=== PATIENT | female | born 1955 | race Caucasian/White ===

== ENCOUNTER 2025-01-07 08:45 | Inpatient (IN) ==
--- OUTSIDE RECORDS SUMMARY | 2025-01-07 15:11 | External Medical Summary ---
Author Name Unknown Address Unknown Organization K1F:[facility] - [address] [place] [address] Laboratory Report Ordering Provider Test Date Status JODIE MIRANDA 01/05/2025 05:38:00 Final Observation Date Value Abnormality Reference (Units ) Status BUN 01/05/2025 05:38:00 10 6-20 (mg/dL) Final Creatinine 01/05/2025 05:38:00 0.6 0.5-1.0 (mg/dL) Final Glomerular filtration rate/1.73 sq M.predicted [Volume Rate/Area] in Serum, Plasma or Blood by Creatinine-based formula (CKD-EPI) 01/05/2025 05:38:00 >90 >=60 (mL/min) Final eGFR is calculated based on the CKD-EPI 2020 equation. Sodium 01/05/2025 05:38:00 139 135-146 (m mol/L) Final Potassium 01/05/2025 05:38:00 4.7 3.5-5.1 (m mol/L) Final Results may be falsely eleva caden due to hemolysis. Cl 01/05/2025 05:38:00 103 98-107 (mm ol/L) Final CO2 01/05/2025 05:38:00 27 22-32 (mmo l/L) Final Anion gap 01/05/2025 05:38:00 9 7-15 (mmol /L) Final Glucose 01/05/2025 05:38:00 97 70-120 (mg /dL) Final Calcium 01/05/2025 05:38:00 9.2 8.4-10.2 ( mg/dL) Final Performing Location [facility] - [address] [place] [address]
--- OUTSIDE RECORDS SUMMARY | 2025-01-07 15:11 | External Medical Summary ---
Author Name Unknown Address Unknown Organization K1F:LAB[facility]AT[facility] - [address] [place] [address] Laboratory Report Ordering Provider Test Date Status JODIE MIRANDA 01/07/2025 05:40:00 Final Observation Date Value Abnormality Reference (Units ) Status WBC, Total 01/07/2025 05:40:00 8.12 4.00-10.80 (K/uL) Final RBC 01/07/2025 05:40:00 3.89 3.85-5.15 (M/uL) Final Hemoglobin 01/07/2025 05:40:00 11.4 Below low normal 12.0-15.3 (g/dL) Final HCT 01/07/2025 05:40:00 36.8 36.0-45.2 (%) Final MCV 01/07/2025 05:40:00 94.6 81.5-97.5 (fL) Final MCH 01/07/2025 05:40:00 29.3 27.0-34.0 (pg) Final MCHC 01/07/2025 05:40:00 31.0 32.0-36.0 (g/dL) Final RDW 01/07/2025 05:40:00 14.4 11.5-15.5 (%) Final Platelets 01/07/2025 05:40:00 316 140-400 (K/uL) Final MPV 01/07/2025 05:40:00 9.0 6.6-11.1 (fL) Final Nucleated erythrocytes/100 leukocytes [Ratio] in Blood by Automated count 01/07/2025 05:40:00 0 <=0 (/100 WBCs) Final Performing Location [facility] - [address] [place] [address]
--- OUTSIDE RECORDS SUMMARY | 2025-01-07 15:11 | External Medical Summary ---
Author Name Unknown Address Unknown Organization K01:[facility] [place] [facility] [place] [address] [place] [address] Laboratory Report Ordering Provider Test Date Status CARLOS AHARSHAL FIELDS 01/05/2025 18:13:57 Final Observation Date Value Abnormality Reference (Units) Status Bacteria identified in Specimen by Culture 01/05/2025 18:13:57 No significant growth Final Test: Culture, Urine, Quant itative
Specimen Source: Urine, Clean Catch
Specimen Type: Urine
Specimen Date: 01/05/20251812
Result Date: 01/07/2025 0845
Result Status: Final result
Resulting Lab: [facility] [place] [facility] [place]
[address]
[facility] [address]

CULTURE

No significant growth

null Performing Location [facility] [place] [facility] [place] - [address] [facility] [address]
--- OUTSIDE RECORDS SUMMARY | 2025-01-07 15:11 | External Medical Summary ---
Author Name Unknown Address Unknown Organization K1F:LABORATORY [facility] - [address] [place] [address] Laboratory Report Ordering Provider Test Date Status JODIE MIRANDA 01/06/2025 05:48:00 Final Observation Date Value Abnormality Reference (Units ) Status WBC, Total 01/06/2025 05:48:00 8.01 4.00-10.80 (K/uL) Final RBC 01/06/2025 05:48:00 3.79 3.85-5.15 (M/uL) Final Hemoglobin 01/06/2025 05:48:00 11.1 Below low normal 12.0-15.3 (g/dL) Final HCT 01/06/2025 05:48:00 36.7 36.0-45.2 (%) Final MCV 01/06/2025 05:48:00 96.8 81.5-97.5 (fL) Final MCH 01/06/2025 05:48:00 29.3 27.0-34.0 (pg) Final MCHC 01/06/2025 05:48:00 30.2 32.0-36.0 (g/dL) Final RDW 01/06/2025 05:48:00 14.5 11.5-15.5 (%) Final Platelets 01/06/2025 05:48:00 312 140-400 (K/uL) Final MPV 01/06/2025 05:48:00 9.0 6.6-11.1 (fL) Final Nucleated erythrocytes/100 leukocytes [Ratio] in Blood by Automated count 01/06/2025 05:48:00 0 <=0 (/100 WBCs) Final Performing Location [facility] - [address] [place] [address]
--- OUTSIDE RECORDS SUMMARY | 2025-01-07 15:11 | External Medical Summary ---
Author Name Unknown Address Unknown Organization K1F:[facility] - [address] [place] [address] Laboratory Report Ordering Provider Test Date Status JODIE MIRANDA 01/06/2025 05:48:00 Final Observation Date Value Abnormality Reference (Units ) Status BUN 01/06/2025 05:48:00 12 6-20 (mg/dL) Final Creatinine 01/06/2025 05:48:00 0.6 0.5-1.0 (mg/dL) Final Glomerular filtration rate/1.73 sq M.predicted [Volume Rate/Area] in Serum, Plasma or Blood by Creatinine-based formula (CKD-EPI) 01/06/2025 05:48:00 >90 >=60 (mL/min) Final eGFR is calculated based on the CKD-EPI 2020 equation. Sodium 01/06/2025 05:48:00 138 135-146 (m mol/L) Final Potassium 01/06/2025 05:48:00 5.0 3.5-5.1 (m mol/L) Final Results may be falsely eleva caden due to hemolysis. Cl 01/06/2025 05:48:00 102 98-107 (mm ol/L) Final CO2 01/06/2025 05:48:00 26 22-32 (mmo l/L) Final Anion gap 01/06/2025 05:48:00 10 7-15 (mmol /L) Final Glucose 01/06/2025 05:48:00 110 70-120 (mg /dL) Final Calcium 01/06/2025 05:48:00 9.0 8.4-10.2 ( mg/dL) Final Performing Location [facility] - [address] [place] [address]
--- OUTSIDE RECORDS SUMMARY | 2025-01-07 15:11 | External Medical Summary ---
Author Name Unknown Address Unknown Organization K1F:LAB[facility]ATORY [facility] - [address] [place] [address] Laboratory Report Ordering Provider Test Date Status JODIE MIRANDA 01/05/2025 05:38:00 Final Observation Date Value Abnormality Reference (Units ) Status WBC, Total 01/05/2025 05:38:00 7.55 4.00-10.80 (K/uL) Final RBC 01/05/2025 05:38:00 3.85 3.85-5.15 (M/uL) Final Hemoglobin 01/05/2025 05:38:00 11.3 Below low normal 12.0-15.3 (g/dL) Final HCT 01/05/2025 05:38:00 36.5 36.0-45.2 (%) Final MCV 01/05/2025 05:38:00 94.8 81.5-97.5 (fL) Final MCH 01/05/2025 05:38:00 29.4 27.0-34.0 (pg) Final MCHC 01/05/2025 05:38:00 31.0 32.0-36.0 (g/dL) Final RDW 01/05/2025 05:38:00 14.2 11.5-15.5 (%) Final Platelets 01/05/2025 05:38:00 315 140-400 (K/uL) Final MPV 01/05/2025 05:38:00 8.9 6.6-11.1 (fL) Final Nucleated erythrocytes/100 leukocytes [Ratio] in Blood by Automated count 01/05/2025 05:38:00 0 <=0 (/100 WBCs) Final Performing Location [facility] - [address] [place] [address]
--- OUTSIDE RECORDS SUMMARY | 2025-01-07 15:11 | External Medical Summary ---
Author Name Unknown Address Unknown Organization K1F:[facility] - [address] [facility] [address] [place] [address] Laboratory Report Ordering Provider Test Date Status HARSHAL STRAUSS 01/05/2025 18:13:57 Final Observation Date Value Abnormality Reference (Units ) Status Color of Urine by Auto 01/05/2025 18:13:57 Yellow Light Yellow, Yellow, Dark Yellow Final Clarity, Urine 01/05/2025 18:13:57 Clear Clear Final Glucose [Mass/volume] in Urine by Automated test strip 01/05/2025 18:13:57 Negative Negative (mg/dL) Final Bilirubin.total [Presence] in Urine by Automated test strip 01/05/2025 18:13:57 Negative Negative Final Ketones [Mass/volume] in Urine by Automated test strip 01/05/2025 18:13:57 Negative Negative (mg/dL) Final Specific gravity, Urine 01/05/2025 18:13:57 1.014 1.003-1.030 Final Hemoglobin [Presence] in Urine by Automated test strip 01/05/2025 18:13:57 Negative Negative Final pH, Urine 01/05/2025 18:13:57 6.0 5.0-7.5 (Units) Final Protein [Mass/volume] in Urine by Automated test strip 01/05/2025 18:13:57 Negative Negative (mg/dL) Final Urobilinogen [Mass/volume] in Urine by Automated test strip 01/05/2025 18:13:57 0.2 0.2, 1.0 (mg/dL) Final Nitrite [Presence] in Urine by Automated test strip 01/05/2025 18:13:57 Negative Negative Final Leukocyte esterase [Presence] in Urine by Automated test strip 01/05/2025 18:13:57 Trace Abnormal Negative Final RBC, Urine 01/05/2025 18:13:57 0-2 0-2 (/HPF) Final WBC, Urine 01/05/2025 18:13:57 0-2 0-2 (/HPF) Final Bacteria [#/area] in Urine sediment by Microscopy high power field 01/05/2025 18:13:57 51-100 Abnormal 0-25 (/HPF) Final CULTURE, URINE - [facility] 01/05/2025 18:13:57 Final Quantitative urine culture t o be performed Performing Location [facility] - [facility] [place] [address]
--- OUTSIDE RECORDS SUMMARY | 2025-01-07 15:11 | External Medical Summary ---
Author Name Unknown Address Unknown Organization K1F:[facility] - [address] [place] [address] Laboratory Report Ordering Provider Test Date Status JODIE MIRANDA 01/07/2025 05:40:00 Final Observation Date Value Abnormality Reference (Units ) Status BUN 01/07/2025 05:40:00 9 6-20 (mg/dL) Final Creatinine 01/07/2025 05:40:00 0.7 0.5-1.0 (mg/dL) Final Glomerular filtration rate/1.73 sq M.predicted [Volume Rate/Area] in Serum, Plasma or Blood by Creatinine-based formula (CKD-EPI) 01/07/2025 05:40:00 >90 >=60 (mL/min) Final eGFR is calculated based on the CKD-EPI 2020 equation. Sodium 01/07/2025 05:40:00 140 135-146 (m mol/L) Final Potassium 01/07/2025 05:40:00 4.3 3.5-5.1 (m mol/L) Final Cl 01/07/2025 05:40:00 102 98-107 (mm ol/L) Final CO2 01/07/2025 05:40:00 27 22-32 (mmo l/L) Final Anion gap 01/07/2025 05:40:00 11 7-15 (mmol /L) Final Glucose 01/07/2025 05:40:00 97 70-120 (mg /dL) Final Calcium 01/07/2025 05:40:00 9.4 8.4-10.2 ( mg/dL) Final Performing Location [facility] - [address] [place] [address]
--- OUTSIDE RECORDS SUMMARY | 2025-01-07 15:12 | External Medical Summary ---
Author Name Unknown Address Unknown Organization K1F:[facility] - [address] [place] [address] Laboratory Report Ordering Provider Test Date Status HARSHAL STRAUSS 01/02/2025 12:54:00 Final Observation Date Value Abnormality Reference (Units ) Status BUN 01/02/2025 12:54:00 10 6-20 (mg/dL) Final Creatinine 01/02/2025 12:54:00 0.6 0.5-1.0 (mg/dL) Final Glomerular filtration rate/1.73 sq M.predicted [Volume Rate/Area] in Serum, Plasma or Blood by Creatinine-based formula (CKD-EPI) 01/02/2025 12:54:00 >90 >=60 (mL/min) Final eGFR is calculated based on the CKD-EPI 2020 equation. Sodium 01/02/2025 12:54:00 137 135-146 (m mol/L) Final Potassium 01/02/2025 12:54:00 3.1 Below low normal 3.5 -5.1 (mmol/L) Final Cl 01/02/2025 12:54:00 99 98-107 (mm ol/L) Final CO2 01/02/2025 12:54:00 23 22-32 (mmo l/L) Final Anion gap 01/02/2025 12:54:00 15 7-15 (mmol /L) Final Glucose 01/02/2025 12:54:00 104 70-120 (mg /dL) Final Calcium 01/02/2025 12:54:00 9.0 8.4-10.2 ( mg/dL) Final Performing Location [facility] - [address] [place] [address]
--- OUTSIDE RECORDS SUMMARY | 2025-01-07 15:12 | External Medical Summary ---
Author Name Unknown Address Unknown Organization K1F:[facility] - [address] [place] [address] Laboratory Report Ordering Provider Test Date Status HARSHAL STRAUSS 01/02/2025 12:54:00 Final Observation Date Value Abnormality Reference (Units ) Status CK 01/02/2025 12:54:00 2654 Above high normal 26 -192 (U/L) Final Performing Location [facility] - [address] [place] [address]
--- OUTSIDE RECORDS SUMMARY | 2025-01-07 15:12 | External Medical Summary | Summary of Care ---
Author Name Unknown Organization [facility] Address [address] [place] [address] Phone [phone] Care Team Providers Care Home Health Care Physician Name Role Phone Jarad Spencer MD Primary Care Provider [phone] Reason for Visit * Reason Onset Date Comments No Show 12/30/2024 [facility] No Show Auto mation Encounter Details Date Type Department Care Team (Late st Contact Info) Description 12/30/[address] [facility] [place] [address] [place] [address] Neftali Nieves PA-C [address] [place] [address] No Show ([place] No Show Automation) Allergies Active Allergy Reactions Criticality Noted Date Comments Diphenhydramine Hcl Itching 10/24/2009 Ceftriaxone Hives 11/23/2020 documented as of this encounter (statuses as of 12/30/2024) Medications Omeprazole 40 MG Oral Capsule Delayed Release (PriLOSEC) Take 1 Capsule by mouth in the morning. 15 Capsule 1 3 Active Vitamin D 50 MCG (1999 UT) Oral Capsule Take 1 capsule by mouth daily. 30 Capsule 3 3 Active Additional Information Patient taking differently: 1 Capsule Oral Daily(AM), Vitamin D3 +K2, Reported on 11/22/2024 Atorvastatin Calcium 40 MG Oral Tablet (Lipitor)Indica tions:Dyslipide richa, goal to be determined Take 1 Tablet by mouth in the morning. 90 Tablet 3 11/17/2024 10:05 AM EST 4 Active Losartan Potassium 25 MG Oral Tablet (Cozaar)Indicat ions:HTN, goal below 130/80 Take 1 Tablet by mouth in the morning. 90 Tablet 3 11/16/2024 1:43 PM EST 4 Active Alendronate Sodium 70 MG Oral Tablet (Fosamax) Take 1 Tablet by mouth once a week with 8 oz. water 30 minutes before first meal of the day. Remain upright for 30 min after taking tablet. 15 Tablet 3 10/31/2024 3:57 PM EST 4 Active lamoTRIgine 100 MG Oral Tablet (LaMICtal) Take 1 tablet by mouth twice a day as directed 180 Tablet 07/20/2024 4:43 PM EDT 4 Active FLUoxetine HCl 40 MG Oral Capsule (PROzac) Take 2 capsule by mouth once a day as directed 180 Capsule 08/16/2024 1:09 PM EST 4 Active Additional Information Patient taking differently: 80 mg Oral Daily(AM), Reported on 11/22/2024 Calcium Carbonate 600 MG Oral Tablet (Calcium 600) Take 1 Tablet by mouth daily. Active Folic Acid 1 MG Oral TabletIndicatio ns:Folic acid deficiency 1 twice a day 60 Tablet 5 4 Active Benztropine Mesylate 0.5 MG Oral Tablet (Cogentin) Take 1 tablet by mouth every evening 10 Tablet 5 Active Sertraline HCl 50 MG Oral Tablet (Zoloft) Take 2 Tablets by mouth in the morning. 5 Active Gabapentin 300 MG Oral Capsule (Neurontin) Take 1 Capsule by mouth in the morning and 1 Capsule at noon and 1 Capsule before bedtime. 270 Capsule 1 5 Active rOPINIRole HCl 0.25 MG Oral Tablet (Requip) Take 1 tablet by mouth twice a day 20 Tablet 11/30/2024 10:47 AM EDT 5 Active Sertraline HCl 100 MG Oral Tablet (Zoloft) Take 1 tablet by mouth once a day 15 Tablet 12/06/2024 6:19 PM EDT 5 Active documented as of this encounter (statuses as of 12/30/2024) Active Problems Problem Noted Date Diagnosed Date Lumbar pain 05/25/2024 Bipolar I disorder, most rec ent episode mixed, severe with psychotic features 04/04/2024 COPD with chronic bronchitis 04/04/2024 GUERITA (generalized anxiety disorder) 04/04/2024 Primary osteoarthritis of one hip, right 024 Prediabetes 02/28/2024 Overview: Per Prediabetes protocol Delusional disorder 11/24/2023 Vitamin D deficiency 04/16/2023 COPD, group B, by GOLD 2017 classification 03/01 Overview: Per COPD GOLD Classification Alcohol dependence in remission 01/01/2021 Gastro-esophageal reflux disease without esophag itis 01/29/2020 Age-related osteoporosis wit hout current pathological fracture 01/29/2020 Chronic migraine without aur a without status migrainosus, not intractable 09/29/2019 Bipolar disorder 09/29/2019 Tobacco dependence 11/12/2017 Dyslipidemia, goal to be determined 10/23/2009 Chronic constipation 04/08/2008 documented as of this encounter (statuses as of 12/30/2024) Resolved Problems Problem Noted Date Diagnosed Date Resolved Date COPD with chronic bronchitis 04/04/2024 04/26/2024 COPD with chronic bronchitis 04/04/2024 04/26/2024 Personality disorder, unspecified 11/24/2023 04/04/2024 Dementia in other diseases c lassified elsewhere, unspecified severity, with mood disturbance 11/24/2023 04/04/2024 Chronic obstructive pulmonary disease 11/24/2023 04/03/2024 Overview (04/03/2024): duplicate Food insecurity 05/31/2023 12/02/2023 Overview: Per [facility] Protocol Bipolar disorder in full remission 05/06/2023 07/20/2024 Delirium 04/16/2023 04/23/2023 Simple chronic bronchitis 10/09/2022 COPD, group A, by GOLD 2017 classification 08/31/2022 03/04/2023 Overview: Per COPD GOLD Classification Chronic obstructive pulmonary disease 01/29/2020 09/03/2022 Overview: Per COPD GOLD Classification COPD exacerbation 11/12/2017 03/28/2019 Influenza A 11/12/2017 03/27/2019 Acute respiratory failure with hypoxia 11/12/2017 03/28/2019 Diarrhea 11/12/2017 03/27/2019 Unstable angina 01/14/2017 01/14/2017 HTN, goal below 140/90 03/02/201611/25 Overview: Per HTN Protocol Closed fracture of head of radius 12/31/2009 03/28/2019 Major depressive disorder, r ecurrent episode, severe, with psychosis 10/23/2009 11/25/2020 Chronic migraine without aur a without status migrainosus, not intractable 10/23/2009 01/29/2020 HTN, goal to be determined 10/23/2009 0 03/05/2016 Closed fracture of nasal bone 10/23/2009 03/28/2019 Overview (06/23/2016): ICD-10 update of inactive term Obesity, Class I, BMI 30.0-3 4.9 (see actual BMI) 05/01/2008 12/16/2009 Overview (12/16/2009): Per Obesity Taxonomy Major depressive disorder, r ecurrent episode, moderate 04/09/2008 10/18/2008 Overview (10/18/2008): Resolved per Duplicate Protocol #2. Alcohol abuse, in remission 04/09/2008 01/01/2021 Major depressive disorder, r ecurrent episode, moderate 03/29/2008 03/27/2019 Major depressive disorder, r ecurrent episode, moderate 06/10/2006 04/27/2007 Personality disorder 06/10/2006 024 Overview (06/10/2006): with cluster B traits Major depressive disorder, s alan episode, moderate 04/12/2006 04/27/2007 documented as of this encounter (statuses as of 12/30/2024) Immunizations Name Administration Dates Next Due COVID-19 mRNA, LNP-s, No Pre serve, 2-Dose Series (Pebbles Interfaces) 11/28/2020,11/01/2020 Pneumococcal Conjugate Vacc, 13 Valent (Prevnar) 03/28/2019 Pneumococcal Conjugate Vaccine, 20-valent (Prevn ar20) 03/16/2023 Pneumococcal Polysaccharide PPV23 (Pneumovax) Seasonal Influenza Vac., MDV, IM, 0.5 mL (Fluzon e) 07/09/2014 Seasonal Influenza, High Dos e, Trivalent, PF, IM (Fluzone HD) 05/31/2024 Seasonal Influenza, PF, 6 M & above, IM , (FluLaval or Fluzone) 06/18/2020,06/20/2019 Seasonal Influenza, Quadrivalent, No Preserve, I M 07/03/2015 Seasonal Influenza, Trivalen t, Adjuvanted, 65+ YRS, PF, (Fluad) 06/20/2022 TDAP (age 10 and older)(Boostrix) 06/23/2018 Zoster Vaccine Recombinant (Shingrix) 04/01/2021 ,05/28/2020 documented as of this encounter Social History Tobacco Use Types Packs/Day Years Used Date Smoking Tobacco: Former Cigarettes 1 53 Vaporizer Smokeless Tobacco: Never Comments:1 ppd in combo with vaping- 04/01/20 Alcohol Use Standard Drinks/Week Comments Yes 1 (1 standard drink = 0.6 oz pure alcohol) h/o heavier alcohol use, currently 2 beers/week PHQ-2 Answer Date Recorded PHQ Adult Total Score 9 07/28/2024 Hunger Vital Sign Answer Date Recorded Within the past 12 months, y ou worried that your food would run out before you got the money to buy more. Never true 06/26/20 24 Within the past 12 months, t he food you bought just didn't last and you didn't have money to get more. Never true 06/26/2024 Childcare Answer Date Recorded Do you feel overwhelmed with taking care of a child, family member or friend? No 06/26/2024 Does your family need help f inding childcare? (Household - for ages 0-17 years) Not on file 06/26/2024 Clothing Answer Date Recorded Have you been unable to get clothing when it was really needed? No 06/26/2024 Is your family able to get c lothes or diapers when needed? (Household - for ages 0-17 years) Not on file 06/26/2024 Personal Safety Answer Date Recorded Do you feel unsafe or have concerns for your saf ety? No 06/26/2024 Do you have concerns for you r family's safety? (Household - for ages 0-17 years) Not on file 06/26/2024 Utilities Answer Date Recorded Do you have trouble paying y our heating, water, or electric bill? No 06/26/2024 Is your family able to pay t he heat, water, or electric bill? (Household - for ages 0-17 years) Not on file 06/26/2024 Does your family have access to good internet? (Household - for ages 0-17 years) Not on file 06/26/2024 Employment Status Answer Date Recorded Are you unemployed or without regular income? No 06/26/2024 Does the household have a re gular source of income? (Household - for ages 0-17 years) Not on file 06/26/2024 Social Connections Answer Date Recorded How often do you feel lonely or isolated from th ose around you? Never 06/26/2024 Financial Resource Strain Answer Date R ecorded Do you have any trouble payi ng for your medications, or do you think you might in the future? No 06/26/2024 Does your family have troubl e paying for medicine? (Household - for ages 0-17 years) Not on file 06/26/2024 Transportation Needs Answer Date Record ed Do you have trouble getting a ride to medical visits or work? (Adult - for ages 18 years and over) Not on file 06/26/2024 Does your family have a hard time getting a ride to doctors visits? (Household - for ages 0-17 years) Not on file 06/26/2024 Has lack of transportation k ept you from medical appointments, meetings, work, or from getting things needed for daily living? Check all that apply. Yes, it has kept me from medical appointments;Yes, it has kept me from non-medical meetings, appointments, work, or from getting things that I need 06/26/2024 Do you (or your family) have trouble finding or paying for a ride (transportation)? (Household - for ages 0-17 years) Not on file 06/26/2024 Housing Stability Answer Date Recorded Do you currently live in a s helter or have no steady place to sleep at night? No 06/26/2024 Do you think you are at risk of becoming homeless? (Adult - for ages 18 years and over) Not on file 06/26/2024 Does your family worry about paying for your home or becoming homeless? (Household - for ages 0-17 years) Not on file 1 Are you homeless or worried that you might be in the future? No 06/26/2024 Are you (or your family) charly eless or worried that you might be in the future? (Household - for ages 0-17 years) Not on file Food Insecurity Answer Date Recorded Do you need food for this week? No 06/26/2024 Are you able to get enough f ood for your family? (Household - for ages 0-17 years) Not on file 06/26/2024 Does your family need food t his week? (Household - for ages 0-17 years) Not on file 06/26/2024 Do you always have enough fo od for your family? (Household - for ages 0-17 years) Not on file 06/26/2024 Food Insecurity Answer Date Recorded Within the past 12 months, y ou worried that your food would run out before you got the money to buy more. Never true 06/26/20 24 Within the past 12 months, t he food you bought just didn't last and you didn't have money to get more. Never true 06/26/2024 Do you need food for this week? No 06/26/2024 Comments No Sex and Gender Information Value Date Recorded Sex Assigned at Female 01/01/2021 3:46 PM EDT Legal Sex Female 5:15 AM EST Gender Identity Female 01/01/2021 3:46 PM EDT Sexual Orientation Straight 01/01/2021 3: 46 PM EDT Occupation Industry Job Start Date Job End Date disability Not on file Not on file Not on file documented as of this encounter Functional Status * Are you deaf or do you have serious difficulty hearing? Answer Date of Assessment Author No 11/20/2019 12:55 PM EST Sofi Lipscomb RN * Are you blind or do you have serious difficulty seeing, even when wearing glasses? Answer Date of Assessment Author No 11/20/2019 12:55 PM Sofi Marcelo RN * Do you have serious difficulty walking or climbing stairs? (5 years old or older) Answer Date of Assessment Author Yes 11/20/2019 12:55 PM Sofi Marcelo RN * Do you have difficulty dressing or bathing? (5 years old or older) Answer Date of Assessment Author No 11/20/2019 12:55 PM Sofi Marcelo RN * Because of a physical, mental, or emotional condition, do you have difficulty doing errands alone such as visiting a doctor’s office or shopping? (15 years old or older) Answer Date of Assessment Author Yes 11/20/2019 12:55 PM Sofi Marcelo RN documented as of this encounter Mental Status * Because of a physical, mental, or emotional condition, do you have serious difficulty concentrating, remembering, or making decisions? (5 years old or older) Answer Entry Date Author No 11/20/2019 12:55 PM Sofi Marcelo RN documented in this encounter Miscellaneous Notes * Telephone Encounter - [facility], No Show - 12/30/2024 5:14 AM EDT Dear Laura Rios, Looks like you missed an appointment with NEFTALI NIEVES on 12/27/2024 at 09:40 AM. If you haven't already rescheduled, you have a couple of options: Reschedule in [email or web address] Call us at [phone] Can't make a future appointment? Cancel and let someone else have your spot! It's easy to do via [employer] or by calling us. Thanks for trusting [facility] with your care. We hope to see you back in our office soon. Sincerely, NEFTALI NIEVES documented in this encounter Plan of Treatment Upcoming Encounters Date Type Department Care Team (Late st Contact Info) Description 01/11/2025 3:10 PM EDT Home Visit [facility] [address] [place] [address] Derrick Mc[facility] [address] [place] [address] 04/10/2025 3:20 PM EDT [facility] [address] [place] [address] Jarad Spencer MD [address] [place] [address] Scheduled Procedures Name Priority Associated Diagnoses Date/Ti me ROBOTIC ARTHROPLASTY TOTAL HIP Primary osteoarthritis of one hip, right Health Maintenance Due Date Last Done Comments Mammogram 1993 Cologuard 1998 Colonoscopy 1998 Sigmoidoscopy 1998 Colorectal Cancer Screening 06/01/2023 Fecal Occult Blood Test 06/01/2023 06/01/2022, 06/01 COVID-19 Vaccine ( season) 2024 11/28/2020, 11/01/2020 HbA1c 05/31/2025 05/31/2024, 01/19, 2023, Additional history exists O2 ASSESSMENT COMPLETED IN PAST YEAR FOR COPD 06/05/2025 06/05/2024 Adult Wellness Visit 07/28/2025 07/28/2024 DXA Scan 04/21/2026 04/21/2024, 03/30/2019 DTap/Tdap Vaccines (2 - Td or Tdap) 06/23/2028 06/23/2018 Lipid Panel 05/31/2029 05/31/2024, 01/19, 2023, Additional history exists Zoster Vaccines Completed 04/01/2021, 05/28/2020 Alpha-1 Antitrypsin Completed 10/29/2022 Pneumococcal Vaccine: 50+ Years Completed 03/16/2023, 03/28/2019, 01/13/2017 Influenza Vaccine (FLU shot) Completed 07/2024, 06/20/2022, 06/18/2020, Additional history exists VITAMIN D LEVEL ONCE IN A LIFETIME-USE SMARTSET# [id number] Completed 05/31/2024, 04/04/2024, 02/11/2024, Additional history exists HPV (Gardasil) Vaccine Aged Out No lo nger eligible based on patient's age to complete this topic Hepatitis B Vaccine Aged Out No longe r eligible based on patient's age to complete this topic MENINGOCOCCAL (MENACTRA/MENVEO) Aged Out No longer eligible based on patient's age to complete this topic Meningitis B Vaccine (Bexsero/Trumemba) Aged Out No longer eligible based on patient's age to complete this topic documented as of this encounter Medical Devices Implanted Type Area Supervisor Display Fabrication Device Identifier Shelf Expiration Date Model / Serial / Lot Reunion Rsa Glenoid Baseplate 28mm Implanted:Qty: 1 on 04/17/2019 by Oscar Monge MD at [facility] Left: Shoulder BHARATH 11/10/2023 [id number] / / [id number] Reunion Rsa Center Screw 6.5 X 24mm Implanted:Qty: 1 on 04/17/2019 by Oscar Monge MD at [facility] Left: Shoulder BHARATH 10/11/2023 [id number] / / [id number] 4.5mm X 24mm Peripheral Screew Implanted:Qty: 1 on 04/17/2019 by Oscar Monge MD at [facility] Left: Shoulder BHARATH : ORTH[employer]ICS 12/11/2023 4355-5007 / / [id number] 4.5mm X 24mm Peripheral Screw Implanted:Qty: 1 on 04/17/2019 by Oscar Monge MD at [facility] Left: Shoulder BHARATH : ORTHOPAEDICS 02/01/2024 8949-2747 / / [id number] 4.5mm X 20mm Peripheral Screw Implanted:Qty: 1 on 04/17/2019 by Oscar Monge MD at OR [facility] Left: Shoulder BHARATH : ORTHOPAEDICS 01/02/2024 [id number] / / [id number] 2mm Eccentric Glenosphere Implanted:Qty: 1 on 04/17/2019 by Oscar Monge MD at OR [facility] Left: Shoulder BHARATH : ORTHOPAEDICS 11/21/2023 5573-2E-3 602 / / [id number] 36mm X 4mm Humeral Insert Implanted:Qty: 1 on 04/17/2019 by Oscar Monge MD at OR [facility] Left: Shoulder 10/30/2023 5571-S-36 04 / / [id number] Press Fit Humeral Stem Implanted:Qty: 1 on 04/17/2019 by Oscar Monge MD at OR [facility] Left: Shoulder BHARATH : ORTHOPAEDICS 10/30/2023 5567-P-30 11 / / [id number] Humeral Cup Implanted:Qty: 1 on 04/17/2019 by Oscar Monge MD at [facility] Left: Shoulder BHARATH : ORTHOPAEDICS 12/27/2023 8663-9091 / / [id number] Reunion Rsa Glenoid Baseplate 28mm Implanted:Qty: 1 on 11/20/2019 by Oscar Monge MD at [facility] Right: Shoulder BHARATH 06/14/2024 2320-5518 / / [id number] Reunion Rsa Center Screw 6.5mm X 36mm Implanted:Qty: 1 on 11/20/2019 by Oscar Monge MD at OR [facility] Right: Shoulder BHARATH 12/12/2022 5365-0623 / / [id number] Reunion Rsa Peripheral Screw 4.5mm X 16mm Implanted:Qty: 1 on 11/20/2019 by Oscar Monge MD at [facility] Right: Shoulder BHARATH 04/12/2024 2458-5118 / / [id number] Reunion Rsa Peripheral Screw 4.5mm X 20mm Implanted:Qty: 1 on 11/20/2019 by Oscar Monge MD at [facility] Right: Shoulder BHARATH 06/06/2024 6852-1202 / / [id number] Reunion Rsa Peripheral Screw 4.5mm X 24mm Implanted:Qty: 1 on 11/20/2019 by Oscar Monge MD at [facility] Right: Shoulder BHARATH 05/02/2024 5087-6732 / / [id number] Reunion Rsa X3 Humeral Insert 36mm X 4mm Implanted:Qty: 1 on 11/20/2019 by Oscar Monge MD at [facility] Right: Shoulder BHARATH 07/29/2024 5571-S-36 04 / / [id number] Reunion Rsa Humeral Cup 36mm X 4mm Implanted:Qty: 1 on 11/20/2019 by Oscar Monge MD at [facility] Right: Shoulder BHARATH 07/30/2024 5664-4226 / / [id number] Reunion Rsa 2mm Eccentric Glenosphere 36mm X 2mm Implanted:Qty: 1 on 11/20/2019 by Oscar Monge MD at [facility] Right: Shoulder BHARATH 07/05/2024 5573-2E-3 602 / / [id number] Reunion S Press-Fit Humeral Stem 11mm X 95mm Implanted:Qty: 1 on 11/20/2019 by Oscar Monge MD at [facility] Right: Shoulder BHARATH 10/19/2024 5567-P-30 11 / / [id number] Lens Intraoc 24.5 - [id number] - [id number] Implanted:Qty: 1 on 03/20/2021 by Alfonso Guillaume MD at [facility] Right: Eye BAUSCH 01/17/2025 [id number] / [id number] / [id number] Lens Intraoc 23.0 - [id number] - [id number] Implanted:Qty: 1 on 03/27/2021 by Alfonso Guillaume MD at [facility] Left: Eye BAUSCH 10/20/2025 [id number] / [id number] / [id number] Radiopaque Bone Cement Implanted:Qty: 1 on 06/05/2024 by Atul Hernandez MD at [facility] N/A: Spine Lumbar BHARATH 11/17/2024 [id number] / / [id number] Description:4 cc cement used documented as of this encounter Advance Directives * Full Code (Latest Code Status on File) Date Activated Date Inactivated Comments 06/05/2024 6:26 AM 06/05/2024 2:22 PM This order r eflects the patients wishes and were consensually agreed upon. Question Answer Comments Discussion of Advance Directives occurred with: Patient * Full Code Date Activated Date Inactivated Comments 04/15/2023 11:49 PM 04/23/2023 5:22 PM This order r eflects the patients wishes and were consensually agreed upon. Question Answer Comments Discussion of Advance Direct brenda occurred with: Not Discussed due to patient's condition Does the patient have a Living Will? No Does the patient have Health Care Power of Press Writer? No * Full Code Date Activated Date Inactivated Comments 04/15/2023 11:41 PM 04/15/2023 11:49 PM This order reflects the patients wishes and were consensually agreed upon. Question Answer Comments Discussion of Advance Direct brenda occurred with: Not Discussed due to patient's condition Does the patient have a Living Will? No Does the patient have Health Care Power of Press Writer? No * Full Code Date Activated Date Inactivated Comments 11/12/2017 7:28 PM 11/16/2017 6:32 PM This order r eflects the patients wishes and were consensually agreed upon. Question Answer Comments Discussion of Advance Directives occurred with: Patient * Full Code Date Activated Date Inactivated Comments 01/13/2017 8:52 PM 01/14/2017 8:54 PM This order r eflects the patients wishes and were consensually agreed upon. Question Answer Comments Discussion of Advance Directives occurred with: Patient Does the patient have a Living Will? No Care Teams Home Health Care Physician Relationship Specialty Start Date End Date Jarad Spencer MD [address] [facility] [facility] [place] [address] PCP - General Family Medicine 08/01/24 documented as of this encounter
--- OUTSIDE RECORDS SUMMARY | 2025-01-07 15:12 | External Medical Summary ---
Author Name Unknown Address Unknown Organization [facility] [address] [place] [address] Laboratory Report Ordering Provider Test Date Status VELMADOYLE MANLEYOY 01/02/2025 18:51:00 Final Observation Date Value Abnormality Reference (Units ) Status Potassium 01/02/2025 18:51:00 3.5 3.5-5.1 (m mol/L) Final Performing Location [facility] [address] [place] [id number]
--- OUTSIDE RECORDS SUMMARY | 2025-01-07 15:12 | External Medical Summary | Summary of Care ---
Author Name Unknown Organization [facility] Address [address] [place] [address] Phone [phone] Care Team Providers Care Supply Planner Name Role Phone Jarad Spencer MD Primary Care Provider [phone] Reason for Visit * Reason Onset Date Comments Order Request 09/29/2024 Encounter Details Date Type Department Care Team (Late st Contact Info) Description [facility] [address] [facility] [place] [phone] Jarad Spencer MD [address] [facility] [place] [address] Order Request Allergies Active Allergy Reactions Criticality Noted Date Comments Diphenhydramine Hcl Itching 10/24/2009 Ceftriaxone Hives 11/23/2020 documented as of this encounter (statuses as of 12/30/2024) Medications Omeprazole 40 MG Oral Capsule Delayed Release (PriLOSEC) Take 1 Capsule by mouth in the morning. 15 Capsule 1 3 Active Vitamin D 50 MCG (1999) Oral Capsule Take 1 capsule by mouth daily. 30 Capsule 3 3 Active Additional Information Patient taking differently: 1 Capsule Oral Daily(AM), Vitamin D3 +K2, Reported on 11/22/2024 Atorvastatin Calcium 40 MG Oral Tablet (Lipitor)Indic ations:Dyslipi demia, goal to be determined Take 1 Tablet by mouth in the morning. 90 Tablet 3 11/17/2024 10:05 AM EST 4 Active Losartan Potassium 25 MG Oral Tablet (Cozaar)Indica tions:HTN, goal below 130/80 Take 1 Tablet by [...] daily. Active Folic Acid 1 MG Oral TabletIndicati ons:Folic acid deficiency 1 twice a day 60 Tablet 5 4 Active ARIPiprazole 10 MG Oral Tablet (Abilify) Take 1 tablet by mouth every night as directed 90 Tablet 07/20/2024 4:43 PM EDT 4 12/28/19 25 Discontin ued(Medic ation List Clean Up) documented as of this encounter (statuses as [...] mRNA, LNP-s, No Pre serve, 2-Dose Series (DocVue) 11/28/2020,11/01/2020 Pneumococcal Conjugate Vacc, 13 Valent (Prevnar) [...] 11/20/2019 12:55 PM Sofi Marcelo RN * Are you blind or do [...] of Assessment Author Yes 11/20/2019 12:55 PM EST Sofi Lipscomb RN documented as of this encounter Mental Status * Because of a physical, mental, or emotional condition, do you have serious difficulty concentrating, remembering, or making decisions? (5 years old or older) Answer Entry Date Author No 11/20/2019 12:55 PM EST Sofi Lipscomb RN documented in this encounter Miscellaneous Notes * Telephone Encounter - Francine Yadav OSA - 10/03/2024 8:48 AM EST DME faxed to number provided. * Telephone Encounter - Jarad Spencer MD - 10/03/2024 8:43 AM EST Signed * Telephone Encounter - Lv Busch LPN - 10/02/2024 1:19 PM EST Order pended. * Telephone Encounter - Janusz Sam OSA - 09/29/2024 12:18 PM EST [facility] received an Order for powerchair or scooter Needs to be updated so insurance will pay. Needs to say "Functional mobility evaulution by PT or OT" documented in this encounter Plan of Treatment Upcoming Encounters Date Type Department Care Team (Late st Contact Info) Description 01/11/2025 3:10 PM EDT Home Visit Care Coordination and Integration [address] [place] [address] Derrick [facility] Music Specialist [address] [place] [address] 04/10/2025 3:20 PM EDT [facility] Visit [facility] [place] [address] [address] Jarad Spencer MD [address] [id number] Scheduled Procedures Name Priority Associated Diagnoses Date/Ti [...] D LEVEL ONCE IN A LIFETIME-USE SMARTSET# 07763 Completed 05/31/2024, 04/04/2024, 02/11/2024, Additional history exists [...] this encounter Medical Devices Implanted Type Area Obstetrician Device Identifier Shelf Expiration Date Model / Serial / Lot Reunion Rsa Glenoid Baseplate 28mm Implanted:Qty: 1 on 04/17/2019 by Oscar Monge MD at OR [facility] Left: Shoulder BHARATH 11/10/2023 4195-4676 / / [id number] Reunion Rsa Center Screw 6.5 X 24mm Implanted:Qty: 1 on 04/17/2019 by Oscar Monge MD at OR [facility] Left: Shoulder BHARATH 10/11/2023 3364-1803 / / [id number] 4.5mm X 24mm Peripheral Screew Implanted:Qty: 1 on 04/17/2019 by Oscar Monge MD at OR [facility] Left: Shoulder BHARATH : ORTHOPAEDICS 12/11/2023 0968-6931 / / [id number] 4.5mm X 24mm Peripheral Screw Implanted:Qty: 1 on 04/17/2019 by Oscar Monge MD at OR [facility] Left: Shoulder BHARATH : ORTHOPAEDICS 02/01/2024 2464-6767 / / [id number] 4.5mm X 20mm Peripheral Screw Implanted:Qty: 1 on 04/17/2019 by Oscar Monge MD at OR [facility] Left: Shoulder BHARATH : ORTHOPAEDICS 01/02/2024 8823-0301 / / [id number] 2mm Eccentric Glenosphere Implanted:Qty: 1 on 04/17/2019 by Oscar Monge MD at OR [facility] Left: Shoulder BHARATH : ORTHOPAEDICS 11/21/2023 5573-2E-3 602 / / [id number] 36mm X 4mm Humeral Insert Implanted:Qty: 1 on 04/17/2019 by Oscar Monge MD at OR [facility] Left: Shoulder 10/30/2023 5571-S-36 04 / / [id number] Press Fit Humeral Stem Implanted:Qty: 1 on 04/17/2019 by Oscar Monge MD at OR [facility] Left: Shoulder BHARATH : ORTHOPAEDICS 10/30/2023 5567-P-30 11 / / [id number] Humeral Cup Implanted:Qty: 1 on 04/17/2019 by Oscar Monge MD at OR [facility] Left: Shoulder BHARATH : ORTHOPAEDICS 12/27/2023 8713-0170 / / [id number] Reunion Rsa Glenoid Baseplate 28mm Implanted:Qty: 1 on 11/20/2019 by Oscar Monge MD at OR [facility] Right: Shoulder BHARATH 06/14/2024 1987-7826 / / [id number] Reunion Rsa Center Screw 6.5mm X 36mm Implanted:Qty: 1 on 11/20/2019 by Oscar Monge MD at OR [facility] Right: Shoulder BHARATH 12/12/2022 7802-2305 / / [id number] Reunion Rsa Peripheral Screw 4.5mm X 16mm Implanted:Qty: 1 on 11/20/2019 by Oscar Monge MD at OR [facility] Right: Shoulder BHARATH 04/12/2024 9865-8481 / / [id number] Reunion Rsa Peripheral Screw 4.5mm X 20mm Implanted:Qty: 1 on 11/20/2019 by Oscar Moneg MD at OR [facility] Right: Shoulder BHARATH 06/06/2024 3880-5796 / / [id number] Reunion Rsa Peripheral Screw 4.5mm X 24mm Implanted:Qty: 1 on 11/20/2019 by Oscar Monge MD at OR [facility] Right: Shoulder BHARATH 05/02/2024 4681-5827 / / [id number] Reunion Rsa X3 Humeral Insert 36mm X 4mm Implanted:Qty: 1 on 11/20/2019 by Oscar Monge MD at OR [facility] Right: Shoulder BHARATH 07/29/2024 5571-S-36 04 / / [id number] Reunion Rsa Humeral Cup 36mm X 4mm Implanted:Qty: 1 on 11/20/2019 by Oscar Monge MD at OR [facility] Right: Shoulder BHARATH 07/30/2024 4162-0988 / / [id number] Reunion Rsa 2mm Eccentric Glenosphere 36mm X 2mm Implanted:Qty: 1 on 11/20/2019 by Oscar Monge MD at OR [facility] Right: Shoulder BHARATH 07/05/2024 5573-2E-3 602 / / [id number] Reunion S Press-Fit Humeral Stem 11mm X 95mm Implanted:Qty: 1 on 11/20/2019 by Oscar Monge MD at OR [facility] Right: Shoulder BHARATH 10/19/2024 5567-P-30 11 / / [id number] Lens Intraoc 24.5 - [id number] - [id number] Implanted:Qty: 1 on 03/20/2021 by Alfonso Guillaume MD at OR [facility] Right: Eye BAUSCH 01/17/2025 [id number] / [id number] / [id number] Lens Intraoc 23.0 - [id number] - [id number] Implanted:Qty: 1 on 03/27/2021 by Alfonso Guillaume MD at OR [facility] Left: Eye BAUSCH 10/20/2025 [id number] / [id number] / [id number] Hv Radiopaque Bone Cement Implanted:Qty: 1 on 06/05/2024 by Atul Hernandez MD at OR [facility] N/A: Spine Lumbar BHARATH 11/17/2024 0406-622- 015 / / [id number] Description:4 cc cement used documented as of this encounter Visit Diagnoses Diagnosis Primary osteoarthritis of one hip, right- Primary Lumbar pain Lumbago Closed compression fracture of body of L1 vertebra (HCC) Lumbar radiculopathy Thoracic or lumbosacral neuritis or radiculitis, unspecified Age-related osteoporosis without current pathological fracture Senile osteoporosis COPD with chronic bronchitis (HCC) Obstructive chronic bronchitis without exacerbation Bilateral hearing loss, unspecified hearing loss type Ambulatory dysfunction documented in this encounter Advance Directives * Full Code [...] the patient have Health Care Power of Design Engineering Specialist? No * Full Code Date Activated Date Inactivated Comments 04/15/2023 11:41 PM 04/15/2023 11:49 PM This order reflects the patients wishes and were consensually agreed upon. Question Answer Comments Discussion of Advance Direct brenda occurred with: Not Discussed due to patient's condition Does the patient have a Living Will? No Does the patient have Health Care Power of Design Engineering Specialist? No * Full Code Date Activated Date [...] have a Living Will? No Care Teams Supply Planner Relationship Specialty Start Date End Date Jarad Spencer MD [address] [facility] [place] [address] PCP - General Family Medicine 08/01/24 documented as of this encounter
--- OUTSIDE RECORDS SUMMARY | 2025-01-07 15:12 | External Medical Summary | Summary of Care ---
Author Name Unknown Organization [facility] Address [address] [place] [address] Phone [phone] Care Team Providers Care Route Driver Salesperson Name Role Phone Jarad Spencer MD Primary Care Provider [phone] Reason for Visit * Reason Onset Date Comments Advice 12/15/2024 12/20 WCB Encounter Details Date Type Department Care Team (Late st Contact Info) Description 12/15/2024 Telephone [facility] [place] [address] [place], [place] [phone] Jarad Spencer MD [address] [place] [address] Advice ( 4/2 WCB 01/01/25) Allergies Active Allergy Reactions Criticality Noted Date Comments Diphenhydramine Hcl Itching 10/24/2009 Ceftriaxone Hives 11/23/2020 documented as of this encounter (statuses as of 01/01/2025) Medications Omeprazole 40 MG Oral Capsule Delayed [...] Tablet 12/06/2024 6:19 PM EDT 5 Active ARIPiprazole 10 MG Oral Tablet (Abilify) Take 1 tablet by mouth every night as directed 90 Tablet 07/20/2024 4:43 PM EDT 4 12/28/19 25 Discontin ued(Medic ation List Clean Up) documented as of this encounter (statuses as of 01/01/2025) Active Problems Problem Noted Date Diagnosed Date [...] as of this encounter (statuses as of 01/01/2025) Resolved Problems Problem Noted Date Diagnosed Date [...] as of this encounter (statuses as of 01/01/2025) Immunizations Name Administration Dates Next Due COVID-19 mRNA, LNP-s, No Pre serve, 2-Dose Series (Pfizer) 11/28/2020,11/01/2020 Pneumococcal Conjugate Vacc, 13 Valent (Prevnar) [...] No 06/26/2024 Does the household have a covenant medical centerr source of income? (Household - for ages [...] encounter Miscellaneous Notes * Telephone Encounter - Ava Wilson MED ASSIST - 01/01/2025 3:45 PM EDT Seems Jameson called back but was notified of another TE and not this message. Called again and left vm to call us back at [phone]. If Jameson calls back please make him aware of message below from Raeann and ask why patient needs evans wheelchair and a walker. Thank you. * Telephone Encounter - Romelia Kat LPN - 01/01/2025 11:32 AM EDT Left message for Jameson to return call to * Telephone Encounter - Oxana Up LPN - 12/20/2024 11:00 AM EDT Left message on Jameson's voicemail. Attempted to submit through Voicebase. I'm unable to order both the wheelchair and walker. Itcomes up stating why she needs a wheelchair if she has a walker. Basically it's questioning why sheneeds both. * Telephone Encounter - Jarad Spencer MD - 12/18/2024 9:42 AM EDT Signed * Telephone Encounter - Olesya Alvarenga LPN - 12/16/2024 11:44 AM EDT DME orders pended for review and sig * Telephone Encounter - Kasey Early OSA - 12/15/2024 11:33 AM EDT Jameson is requesting a standard wheelchair and walker (ordered September) for patient. Unable to reach [facility] within alloted wait time. Jameson can be reached at [phone]. * Telephone Encounter - Shea Blanchard LPN - 12/15/2024 11:18 AM EDT Jameson, case loader operator from [employer]. Coordinate home health after patient is discharged from hip surgery. Advised that he needs to reachout to her surgeon as the orders will need to come from them. Aware and verbalized understanding--he will reach out to them. * Telephone Encounter - Nafisa Langley OSA - 12/15/2024 11:15 AM EDT Reason for patient's call: Physical Therapy after discharged of surgery Caller was transferred to Shea at the nurse line. documented in this encounter Plan of Treatment Upcoming Encounters Date Type Department Care Team (Late st Contact Info) Description 01/11/2025 3:10 PM EDT Home Visit Care Coordination and Integration [address] [place] [address] [facility]rick [facility] Hooker Operator [address] [place] [address] 04/10/2025 3:20 PM EDT Office Visit [place] [address] [place] [address] Jarad Spencer MD [address] [place] [address] Scheduled Procedures Name Priority Associated Diagnoses Date/Ti me ROBOTIC ARTHROPLASTY TOTAL HIP Primary osteoarthritis of one hip, right Health Maintenance Due Date Last Done Comments Mammogram 1993 Cologuard 1998 Colonoscopy 1998 Sigmoidoscopy 1998 Colorectal Cancer Screening 06/01/2023 Fecal Occult Blood Test 06/01/2023 06/01/2022, 06/01 COVID-19 Vaccine ( season) 2024 11/28/2020, 11/01/2020 HbA1c 05/31/2025 05/31/2024, 0512/2023, 2023, Additional history exists O2 ASSESSMENT COMPLETED [...] D LEVEL ONCE IN A LIFETIME-USE SMARTSET# 71218 Completed 05/31/2024, 04/04/2024, 02/11/2024, Additional history exists [...] this encounter Medical Devices Implanted Type Area Wire Stripper Device Identifier Shelf Expiration Date Model / Serial / Lot Reunion Rsa Glenoid Baseplate 28mm Implanted:Qty: 1 on 04/17/2019 by Oscar Monge MD at OR [facility] Left: Shoulder BHARATH 11/10/2023 9777-2898 / / [id number] Reunion Rsa Center Screw 6.5 X 24mm Implanted:Qty: 1 on 04/17/2019 by Oscar Monge MD at OR [facility] Left: Shoulder BHARATH 10/11/2023 3579-8343 / / [id number] 4.5mm X 24mm Peripheral Screew Implanted:Qty: 1 on 04/17/2019 by Oscar Monge MD at OR [facility] Left: Shoulder BHARATH : ORTHOPAEDICS 12/11/2023 7221-8785 / / [id number] 4.5mm X 24mm Peripheral Screw Implanted:Qty: 1 on 04/17/2019 by Oscar Monge MD at OR [facility] Left: Shoulder BHARATH : ORTHOPAEDICS 02/01/2024 6620-9368 / / [id number] 4.5mm X 20mm Peripheral Screw Implanted:Qty: 1 on 04/17/2019 by Oscar Monge MD at OR [facility] Left: Shoulder BHARATH : ORTHOPAEDICS 01/02/2024 8588-4539 / / [id number] 2mm Eccentric Glenosphere Implanted:Qty: 1 on 04/17/2019 by Oscar Monge MD at OR [facility] Left: Shoulder BHARATH : ORTHOPAEDICS 11/21/2023 5573-2E-3 602 / / [id number] 36mm X 4mm Humeral Insert Implanted:Qty: 1 on 04/17/2019 by Oscar Mogne MD at OR [facility] Left: Shoulder 10/30/2023 5571-S-36 04 / / [id number] Press Fit Humeral Stem Implanted:Qty: 1 on 04/17/2019 by Oscar Monge MD at OR [facility] Left: Shoulder BHARATH : ORTHOPAEDICS 10/30/2023 5567-P-30 11 / / [id number] Humeral Cup Implanted:Qty: 1 on 04/17/2019 by Oscar Monge MD at OR [facility] Left: Shoulder BHARATH : ORTHOPAEDICS 12/27/2023 0357-5296 / / [id number] Reunion Rsa Glenoid Baseplate 28mm Implanted:Qty: 1 on 11/20/2019 by Oscar Monge MD at OR [facility] Right: Shoulder BHARATH 06/14/2024 7293-5452 / / [id number] Reunion Rsa Center Screw 6.5mm X 36mm Implanted:Qty: 1 on 11/20/2019 by Oscar Monge MD at OR [facility] Right: Shoulder BHARATH 12/12/2022 2831-0398 / / [id number] Reunion Rsa Peripheral Screw 4.5mm X 16mm Implanted:Qty: 1 on 11/20/2019 by Oscar Monge MD at OR [facility] Right: Shoulder BHARATH 04/12/2024 2335-7155 / / [id number] Reunion Rsa Peripheral Screw 4.5mm X 20mm Implanted:Qty: 1 on 11/20/2019 by Oscar Monge MD at OR [facility] Right: Shoulder BHARATH 06/06/2024 8174-0365 / / [id number] Reunion Rsa Peripheral Screw 4.5mm X 24mm Implanted:Qty: 1 on 11/20/2019 by Oscar Monge MD at OR [facility] Right: Shoulder BHARATH 05/02/2024 6187-5942 / / [id number] Reunion Rsa X3 Humeral Insert 36mm X 4mm Implanted:Qty: 1 on 11/20/2019 by Oscar Monge MD at OR [facility] Right: Shoulder BHARATH 07/29/2024 5571-S-36 04 / / [id number] Reunion Rsa Humeral Cup 36mm X 4mm Implanted:Qty: 1 on 11/20/2019 by Oscar Monge MD at OR [facility] Right: Shoulder BHARATH 07/30/2024 5509-1030 / / [id number] Reunion Rsa 2mm Eccentric Glenosphere 36mm X 2mm Implanted:Qty: 1 on 11/20/2019 by Oscar Monge MD at OR [facility] Right: Shoulder BHARATH 07/05/2024 5573-2E-3 602 / / [id number] Reunion S Press-Fit Humeral Stem 11mm X 95mm Implanted:Qty: 1 on 11/20/2019 by Oscar Monge MD at OR [facility] Right: Shoulder BHARATH 10/19/2024 5567-P-30 11 / / [id number] Lens Intraoc 24.5 - [id number] - [id number] Implanted:Qty: 1 on 03/20/2021 by Alfonso Guillaume MD at OR [facility] Right: Eye BAUSCH 01/17/2025 [id number] / [id number] / [id number] Lens Intraoc 23.0 - [id number] - [id number] Implanted:Qty: 1 on 03/27/2021 by Alfonso Guillaume MD at OR [facility] Left: Eye BAUSCH 10/20/2025 [id number] / [id number] / Vertaplex Hv Radiopaque Bone Cement Implanted:Qty: 1 on 06/05/2024 by Atul Hernandez MD at OR [facility] N/A: Spine Lumbar BHARATH 11/17/2024 0406-622- 015 / / [id number] Description:4 cc cement used documented as of this encounter Visit Diagnoses Diagnosis Status post hip surgery- Primary Age-related osteoporosis without current pathological fracture Senile osteoporosis COPD, group B, by GOLD 2017 classification ([facility]) Delusional disorder (HCC) Bipolar I disorder, most recent episode mixed, severe with psychotic features (HCC) Bipolar I disorder, most recent episode (or current) mixed, severe, specified as with psychotic behavior Lumbar pain Lumbago documented in this encounter Advance Directives * [...] the patient have Health Care Power of Gis Software Developer? No * Full Code Date Activated Date Inactivated Comments 04/15/2023 11:41 PM 04/15/2023 11:49 PM This order reflects the patients wishes and were consensually agreed upon. Question Answer Comments Discussion of Advance Direct brenda occurred with: Not Discussed due to patient's condition Does the patient have a Living Will? No Does the patient have Health Care Power of Gis Software Developer? No * Full Code Date Activated Date [...] have a Living Will? No Care Teams Route Driver Salesperson Relationship Specialty Start Date End Date Jarad Spencer MD [address] [facility] [place] [address] PCP - General Family Medicine 08/01/24 documented as of this encounter
--- OUTSIDE RECORDS SUMMARY | 2025-01-07 15:12 | External Medical Summary | Summary of Care ---
Author Name Unknown Organization [facility] Address [address] [place] [address] Phone [phone] Care Team Providers Care Security Alarm Technician Name Role Phone Jarad Spencer MD Primary Care Provider [phone] Reason for Visit * Reason Onset Date Comments Advice 12/15/2024 12/20 Encounter Details Date Type Department Care Team (Late st Contact Info) Description [facility] [place] [phone] Jarad Spencer MD [address] [facility] [address] Advice (Lm 12/20) Allergies Active Allergy Reactions Criticality Noted Date Comments Diphenhydramine Hcl Itching 10/24/2009 Ceftriaxone Hives 11/23/2020 documented as of this encounter (statuses as of 12/20/2024) Medications Omeprazole 40 MG Oral Capsule Delayed [...] 3 10/31/2024 3:57 PM EST 4 Active ARIPiprazole 10 MG Oral Tablet (Abilify) Take 1 tablet by mouth every night as directed 90 Tablet 07/20/2024 4:43 PM EDT 4 Active lamoTRIgine 100 MG Oral Tablet [...] day 15 Tablet 12/06/2024 6:19 PM EDT Active documented as of this encounter (statuses as of 12/20/2024) Active Problems Problem Noted Date Diagnosed Date [...] as of this encounter (statuses as of 12/20/2024) Resolved Problems Problem Noted Date Diagnosed Date [...] as of this encounter (statuses as of 12/20/2024) Immunizations Name Administration Dates Next Due COVID-19 [...] No 06/26/2024 Does the household have a [facility] source of income? (Household - for ages [...] encounter Miscellaneous Notes * Telephone Encounter - Oxana Up LPN - 12/20/2024 11:00 AM EDT Left message on [employer]. Attempted to submit through [email or web address]. I'm unable to order both the wheelchair [...] wait time. Jameson can be reached at [phone]. * Telephone Encounter - Shea Blanchard LPN - 12/15/2024 11:18 AM EDT Jameson, residential case manager from [employer]. Coordinate home health after patient is discharged from hip surgery. Advised that he needs to reachout to her surgeon as the orders will need to come from them. Aware and verbalized understanding--he will reach out to them. * Telephone Encounter - Nafisa Langley OSA - 12/15/2024 11:15 AM EDT Reason for patient's call: Physical Therapy after discharged of surgery Caller was transferred to [facility] at the nurse line. documented in this encounter Plan of Treatment Upcoming Encounters Date Type Department Care Team (Late st Contact Info) Description 04/10/2025 3:20 PM EDT Office Visit [facility] [address] [facility] [place] [address] Jarad Spencer MD [facility] [place] [address] Scheduled Procedures Name Priority Associated Diagnoses Date/Ti [...] D LEVEL ONCE IN A LIFETIME-USE SMARTSET# 81541 Completed 05/31/2024, 04/04/2024, 02/11/2024, Additional history exists [...] this encounter Medical Devices Implanted Type Area Treatment Coordinator Device Identifier Shelf Expiration Date Model / Serial / Lot Reunion Rsa Glenoid Baseplate 28mm Implanted:Qty: 1 on 04/17/2019 by Oscar Monge MD at OR [facility] Left: Shoulder BHARATH 11/10/2023 3617-1371 / / [id number] Reunion Rsa Center Screw 6.5 X 24mm Implanted:Qty: 1 on 04/17/2019 by Oscar Monge MD at OR [facility] Left: Shoulder BHARATH 10/11/2023 1217-4838 / / [id number] 4.5mm X 24mm Peripheral Screew Implanted:Qty: 1 on 04/17/2019 by Oscar Monge MD at OR [facility] Left: Shoulder BHARATH : ORTHOPAEDICS 12/11/2023 4274-9956 / / [id number] 4.5mm X 24mm Peripheral Screw Implanted:Qty: 1 on 04/17/2019 by Oscar Monge MD at OR [facility] Left: Shoulder BHARATH : ORTHOPAEDICS 02/01/2024 0576-6744 / / [id number] 4.5mm X 20mm Peripheral Screw Implanted:Qty: 1 on 04/17/2019 by Oscar Monge MD at OR [facility] Left: Shoulder BHARATH : ORTHOPAEDICS 01/02/2024 0999-8428 / / [id number] 2mm Eccentric Glenosphere Implanted:Qty: 1 on 04/17/2019 by Oscar Monge MD at OR [facility] Left: Shoulder BHARATH : ORTHOPAEDICS 11/21/2023 5573-2E-3 602 / / [id number] 36mm X 4mm Humeral Insert Implanted:Qty: 1 on 04/17/2019 by Oscar Monge MD at OR [facility] Left: Shoulder 10/30/2023 5571-S-36 04 / / [id number] Press Fit Humeral Stem Implanted:Qty: 1 on 04/17/2019 by Oscar Monge MD at OR [facility] Left: Shoulder BHARATH : ORTHOPAEDICS 10/30/2023 5567-P-30 11 / / [id number] Humeral Cup Implanted:Qty: 1 on 04/17/2019 by Oscar Monge MD at OR [facility] Left: Shoulder BHARATH : ORTHOPAEDICS 12/27/2023 7387-7810 / / [id number] Reunion Rsa Glenoid Baseplate 28mm Implanted:Qty: 1 on 11/20/2019 by Oscar Monge MD at OR [facility] Right: Shoulder BHARATH 06/14/2024 0380-8971 / / [id number] Reunion Rsa Center Screw 6.5mm X 36mm Implanted:Qty: 1 on 11/20/2019 by Oscar Monge MD at OR [facility] Right: Shoulder BHARATH 12/12/2022 0768-6017 / / [id number] Reunion Rsa Peripheral Screw 4.5mm X 16mm Implanted:Qty: 1 on 11/20/2019 by Oscar Monge MD at OR [facility] Right: Shoulder BHARATH 04/12/2024 6004-8322 / / [id number] Reunion Rsa Peripheral Screw 4.5mm X 20mm Implanted:Qty: 1 on 11/20/2019 by Oscar Monge MD at OR [facility] Right: Shoulder BHARATH 06/06/2024 0330-8048 / / [id number] Reunion Rsa Peripheral Screw 4.5mm X 24mm Implanted:Qty: 1 on 11/20/2019 by Oscar Monge MD at OR [facility] Right: Shoulder BHARATH 05/02/2024 8165-5005 / / [id number] Reunion Rsa X3 Humeral Insert 36mm X 4mm Implanted:Qty: 1 on 11/20/2019 by Oscar Monge MD at OR [facility] Right: Shoulder BHARATH 07/29/2024 5571-S-36 04 / / [id number] Reunion Rsa Humeral Cup 36mm X 4mm Implanted:Qty: 1 on 11/20/2019 by Oscar Monge MD at OR [facility] Right: Shoulder BHARATH 07/30/2024 4909-9342 / / [id number] Reunion Rsa 2mm Eccentric Glenosphere 36mm X 2mm Implanted:Qty: 1 on 11/20/2019 by Oscar Monge MD at OR [facility] Right: Shoulder BHARATH 07/05/2024 5573-2E-3 602 / / [id number] Reunion S Press-Fit Humeral Stem 11mm X 95mm Implanted:Qty: 1 on 11/20/2019 by Oscar Monge MD at OR [facility] Right: Shoulder BHARATH 10/19/2024 5567-P-30 11 / / [id number] Lens Intraoc 24.5 - [id number] - [id number] Implanted:Qty: 1 on 03/20/2021 by Alfonso Guillaume MD at OR [facility] Right: Eye BAUSCH & LOMB 01/17/2025 [id number] / [id number] / [id number] Lens Intraoc 23.0 - [id number] - [id number] Implanted:Qty: 1 on 03/27/2021 by Alfonso Guillaume MD at OR [facility] Left: Eye BAUSCH & LOMB 10/20/2025 [id number] / [id number] / [id number] Hv Radiopaque Bone Cement Implanted:Qty: 1 on 06/05/2024 by Atul Hernandez MD at OR [facility] N/A: Spine Lumbar BHARATH 11/17/2024 0406-622- 015 / / [id number] Description:4 cc cement used documented as of this encounter Visit Diagnoses Diagnosis Status post hip surgery- Primary Age-related osteoporosis without current pathological fracture Senile osteoporosis COPD, group B, by GOLD 2017 classification ([facility]) Delusional disorder ([facility]) Bipolar I disorder, most recent episode mixed, [...] the patient have Health Care Power of Loom Stop Checker? No * Full Code Date Activated Date Inactivated Comments 04/15/2023 11:41 PM 04/15/2023 11:49 PM This order reflects the patients wishes and were consensually agreed upon. Question Answer Comments Discussion of Advance Direct brenda occurred with: Not Discussed due to patient's condition Does the patient have a Living Will? No Does the patient have Health Care Power of Loom Stop Checker? No * Full Code Date Activated Date Inactivated Comments 11/12/2017 7:28 PM 11/16/2017 6:32 PM This order reflects the patients wishes [...] have a Living Will? No Care Teams Security Alarm Technician Relationship Specialty Start Date End Date Jarad Spencer MD [address] [place] [address] PCP - General Family Medicine 08/01/24 documented as of this encounter
--- OUTSIDE RECORDS SUMMARY | 2025-01-07 15:12 | External Medical Summary | Summary of Care ---
Author Name Unknown Organization [facility] Address [address] [place] [address] Phone [phone] Care Team Providers Care [place] Machine Operator Name Role Phone Jarad Spencer MD Primary Care Provider [phone] Reason for Visit * Reason Onset Date Comments Advice 01/01/2025 Encounter Details Date Type Department Care Team (Late st Contact Info) Description [facility]/01[facility]20[facility] [address] [place], [place] [phone] Jarad Spencer MD [address] [place], [place] [phone] Advice Allergies Active Allergy Reactions Criticality Noted Date Comments Diphenhydramine Hcl Itching 10/24/2009 Ceftriaxone Hives 11/23/2020 documented as of this encounter (statuses as of 01/02/2025) Medications Omeprazole 40 MG Oral Capsule Delayed [...] as of this encounter (statuses as of 01/02/2025) Active Problems Problem Noted Date Diagnosed Date [...] as of this encounter (statuses as of 01/02/2025) Resolved Problems Problem Noted Date Diagnosed Date [...] as of this encounter (statuses as of 01/02/2025) Immunizations Name Administration Dates Next Due COVID-19 [...] 06/26/2024 Does the household have a re lar source of income? (Household - for ages [...] Miscellaneous Notes * Telephone Encounter - Ava Wilson, MED ASSIST - 01/01/2025 3:35 PM EDT TYLER - Please see message from Kayla: "Kayla the pt's friend called in to inform that the pt is seeing and speaking to individual who are no longer alive. It started last week and now its everyday. Kayla stated that the pt was diagnosed with Dementia years ago but was never treated. They would like a call back at [phone] " Attempted to contact patient's friend - [facility] to call us back at [phone]. If Kayla calls back please transfer to nurse line. Thank you. * Telephone Encounter - Santo Mathis OSA - 01/01/2025 1:14 PM EDT Patient's Beater Worker Helper has been notified of the message. Patients Beater Worker Helper has no further questions. * Telephone Encounter - Susan Patrick OSA - 01/01/2025 12:33 PM EDT Please advise. * Telephone Encounter - Maico Nelson OSA - 01/01/2025 10:56 AM EDT Kayla the pt's friend called in to inform that the pt is seeing and speaking to individual who are no longer alive. It started last week and now its everyday. Kayla stated that the pt was diagnosed with Dementia years ago but was never treated. They would like a call back at [phone] documented in this encounter Plan of Treatment Upcoming Encounters Date Type Department Care Team (Late st Contact Info) Description 01/11/2025 3:10 PM EDT Home Visit [facility] [address] [place] [address] Derrick Mcfarland Community Health Mixer Operator [address] [place] [address] 04/10/2025 3:20 PM EDT Office Visit [facility] [place] [address] [facility] [place] [address] Jarad Spencer MD [address] [facility] [place] [address] Scheduled Procedures Name Priority Associated Diagnoses Date/Ti [...] D LEVEL ONCE IN A LIFETIME-USE SMARTSET# 60419 Completed 05/31/2024, 04/04/2024, 02/11/2024, Additional history exists [...] this encounter Medical Devices Implanted Type Area Hose Turner Device Identifier Shelf Expiration Date Model / Serial / Lot Reunion Rsa Glenoid Baseplate 28mm Implanted:Qty: 1 on 04/17/2019 by Oscar Monge MD at OR [facility] Left: Shoulder BHARATH 11/10/2023 4546-8183 / / [id number] Reunion Rsa Center Screw 6.5 X 24mm Implanted:Qty: 1 on 04/17/2019 by Oscar Monge MD at OR [facility] Left: Shoulder BHARATH 10/11/2023 5281-3598 / / [id number] 4.5mm X 24mm Peripheral Screew Implanted:Qty: 1 on 04/17/2019 by Oscar Monge MD at OR [facility] Left: Shoulder BHARATH : ORTHOPAEDICS 12/11/2023 2322-3945 / / [id number] 4.5mm X 24mm Peripheral Screw Implanted:Qty: 1 on 04/17/2019 by Oscar Monge MD at OR [facility] Left: Shoulder BHARATH : ORTHOPAEDICS 02/01/2024 9861-2857 / / [id number] 4.5mm X 20mm Peripheral Screw Implanted:Qty: 1 on 04/17/2019 by Oscar Monge MD at OR [facility] Left: Shoulder BHARATH : ORTHOPAEDICS 01/02/2024 5243-1266 / / [id number] 2mm Eccentric Glenosphere Implanted:Qty: 1 on 04/17/2019 by Oscar Monge MD at OR [facility] Left: Shoulder BHARATH : ORTHOPAEDICS 11/21/2023 5573-2E-3 602 / / [id number] 36mm X 4mm Humeral Insert Implanted:Qty: 1 on 04/17/2019 by Oscar Monge MD at OR [facility] Left: Shoulder 10/30/2023 5571-S-36 04 / / [id number] Press Fit Humeral Stem Implanted:Qty: 1 on 04/17/2019 by Oscar Monge MD at OR [facility] Left: Shoulder BHARATH : ORTHOPAEDICS 10/30/2023 5567-P-30 11 / / [id number] Humeral Cup Implanted:Qty: 1 on 04/17/2019 by Oscar Monge MD at OR [facility] Left: Shoulder BHARATH : ORTHOPAEDICS 12/27/2023 7246-5139 / / [id number] Reunion Rsa Glenoid Baseplate 28mm Implanted:Qty: 1 on 11/20/2019 by Oscar Monge MD at OR [facility] Right: Shoulder BHARATH 06/14/2024 6150-3956 / / [id number] Reunion Rsa Center Screw 6.5mm X 36mm Implanted:Qty: 1 on 11/20/2019 by Oscar Monge MD at OR [facility] Right: Shoulder BHARATH 12/12/2022 7753-1819 / / [id number] Reunion Rsa Peripheral Screw 4.5mm X 16mm Implanted:Qty: 1 on 11/20/2019 by Oscar Monge MD at OR [facility] Right: Shoulder BHARATH 04/12/2024 0655-2430 / / [id number] Reunion Rsa Peripheral Screw 4.5mm X 20mm Implanted:Qty: 1 on 11/20/2019 by Oscar Monge MD at OR [facility] Right: Shoulder BHARATH 06/06/2024 1587-4836 / / [id number] Reunion Rsa Peripheral Screw 4.5mm X 24mm Implanted:Qty: 1 on 11/20/2019 by Oscar Mogne MD at OR [facility] Right: Shoulder BHARATH 05/02/2024 6981-0420 / / [id number] Reunion Rsa X3 Humeral Insert 36mm X 4mm Implanted:Qty: 1 on 11/20/2019 by Oscar Monge MD at OR [facility] Right: Shoulder BHARATH 07/29/2024 5571-S-36 04 / / [id number] Reunion Rsa Humeral Cup 36mm X 4mm Implanted:Qty: 1 on 11/20/2019 by Oscar Monge MD at OR [facility] Right: Shoulder BHARATH 07/30/2024 0303-8249 / / [id number] Reunion Rsa 2mm Eccentric Glenosphere 36mm X 2mm Implanted:Qty: 1 on 11/20/2019 by Oscar Monge MD at OR [facility] Right: Shoulder BHARATH 07/05/2024 5573-2E-3 602 / / [id number] Reunion S Press-Fit Humeral Stem 11mm X 95mm Implanted:Qty: 1 on 11/20/2019 by Oscar Monge MD at OR [facility] Right: Shoulder BHARATH 10/19/2024 5567-P-30 11 / / [id number] Lens Intraoc 24.5 - [id number] - [id number] Implanted:Qty: 1 on 03/20/2021 by Alfonso Guillaume MD at OR [facility] Right: Eye BAUSCH 01/17/2025 [id number] / [id number] / [id number] Lens Intraoc 23.0 - [id number] - [id number] Implanted:Qty: 1 on 03/27/2021 by Alfonso Guillaume MD at OR [facility] Left: Eye BAUSCH 10/20/2025 [id number] / [id number] / Vertaplex Hv Radiopaque Bone Cement Implanted:Qty: 1 on 06/05/2024 by Atul Hernandez MD at OR [facility] N/A: Spine Lumbar BHARATH 11/17/2024 0406-622- 015 / / [id number] Description:4 cc cement used documented as of [...] the patient have Health Care Power of Piece Goods Packer? No * Full Code Date Activated Date Inactivated Comments 04/15/2023 11:41 PM 04/15/2023 11:49 PM This order reflects the patients wishes and were consensually agreed upon. Question Answer Comments Discussion of Advance Direct brenda occurred with: Not Discussed due to patient's condition Does the patient have a Living Will? No Does the patient have Health Care Power of Piece Goods Packer? No * Full Code Date Activated Date [...] have a Living Will? No Care Teams [place] Machine Operator Relationship Specialty Start Date End Date Jarad Spencer MD [address] [facility] [place] [address] PCP - General Family Medicine 08/01/24 documented as of this encounter
--- OUTSIDE RECORDS SUMMARY | 2025-01-07 15:12 | External Medical Summary ---
Author Name Unknown Address Unknown Organization K1F:LABORATORY [facility] - [address] [place] [address] Laboratory Report Ordering Provider Test Date Status HARSHAL STRAUSS 01/02/2025 12:54:00 Final Observation Date Value Abnormality Reference (Units ) Status Albumin 01/02/2025 12:54:00 3.6 Below low normal 3.8-5.0 (g/dL) Final AST (Aspartate aminotransferase) 01/02/2025 12:54:00 116 Above high normal 10-35 (U/L) Final Alk Phos 01/02/2025 12:54:00 103 35-130 (U/L) Final ALT (Alanine aminotransferase) 01/02/2025 12:54:00 54 Above high normal 10-35 (U/L) Final Bilirubin, Total 01/02/2025 12:54:00 0.6 <=1.2 (mg/dL) Final Bilirubin, Direct 01/02/2025 12:54:00 0.3 0.0-0.3 (mg/dL) Final Protein 01/02/2025 12:54:00 6.5 6.0-8.3 (g/dL) Final Performing Location LABORATORY [facility] - [address] [place] [address]
--- OUTSIDE RECORDS SUMMARY | 2025-01-07 15:12 | External Medical Summary ---
Author Name Unknown Address Unknown Organization K1F:LABORATORY [facility] - [address] [place] [address] Laboratory Report Ordering Provider Test Date Status HARSHAL STRAUSS 01/02/2025 12:54:00 Final Observation Date Value Abnormality Reference (Units ) Status WBC, Total 01/02/2025 12:54:00 9.34 4.00-10.80 (K/uL) Final RBC 01/02/2025 12:54:00 3.88 3.85-5.15 (M/uL) Final Hemoglobin 01/02/2025 12:54:00 11.5 Below low normal 12.0-15.3 (g/dL) Final HCT 01/02/2025 12:54:00 36.4 36.0-45.2 (%) Final MCV 01/02/2025 12:54:00 93.8 81.5-97.5 (fL) Final MCH 01/02/2025 12:54:00 29.6 27.0-34.0 (pg) Final MCHC 01/02/2025 12:54:00 31.6 32.0-36.0 (g/dL) Final RDW 01/02/2025 12:54:00 14.3 11.5-15.5 (%) Final Platelets 01/02/2025 12:54:00 313 140-400 (K/uL) Final MPV 01/02/2025 12:54:00 8.9 6.6-11.1 (fL) Final Nucleated erythrocytes/100 leukocytes [Ratio] in Blood by Automated count 01/02/2025 12:54:00 0 <=0 (/100 WBCs) Final Performing Location LABORATORY [facility] - [address] [place] [address]
--- OUTSIDE RECORDS SUMMARY | 2025-01-07 15:12 | External Medical Summary ---
Author Name Unknown Address Unknown Organization K1F:LABORATORY [facility] - [address] [place] [address] Laboratory Report Ordering Provider Test Date Status HARSHAL STRAUSS 01/02/2025 13:18:00 Final Please submit paper requisit ion from unit printer with sample and fill in the appropriate information:
null Observation Date Value Abnormality Reference (Units ) Status Body temperature 01/02/2025 13:18:00 37.0 (C) Final pH of Venous blood 01/02/2025 13:18:00 7.407 7.320-7.430 (units) Final Carbon dioxide [Partial pressure] in Venous blood 01/02/2025 13:18:00 42.7 40.0-60.0 (mmHg) Final Oxygen [Partial pressure] in Venous blood 01/02/2025 13:18:00 36.5 25.0-50.0 (mmHg) Final Base excess, Capillary 01/02/2025 13:18:00 1.9 -2.0-2.0 (mmol/L) Final Hemoglobin [Mass/volume] in Blood by Oximetry 01/02/2025 13:18:00 11.6 Below low normal 12.0-15.3 (g/dL) Final Oxyhemoglobin, Venous (FO2HB) 01/02/2025 13:18:00 64.5 40.0-85.0 (% total Hgb) Final Carboxyhemoglobin 01/02/2025 13:18:00 1.1 <=1.5 (% total Hgb) Final Smokers: 0-9.0 % Methemoglobin 01/02/2025 13:18:00 0.4 <=1.5 (% total Hgb) Final Deoxyhemoglobin/Hemoglobin.t otal in Venous blood 01/02/2025 13:18:00 34.0 (% total Hgb) Caryn l Oxygen content in Venous blood 01/02/2025 13:18:00 10.5 7.0-18.0 (%vol) Final Bicarbonate, Venous, POC (i-STAT) 01/02/2025 13:18:00 26.3 23.0-31.0 (mmol/L) [facility] Performing Location LABORATORY [facility] - [address] [facility] [address] [place] [address]
--- OUTSIDE RECORDS SUMMARY | 2025-01-07 15:12 | External Medical Summary ---
Author Name Unknown Address Unknown Organization K1F:LABORATORY [facility] - [address] [place] [address] Laboratory Report Ordering Provider Test Date Status VICKIE CARREON 01/03/2025 05:44:00 Final Observation Date Value Abnormality Reference (Units ) Status Magnesium 01/03/2025 05:44:00 2.1 1.5-2.6 (m g/dL) Final Performing Location LABORATORY [facility] - [address] [place] [address]
--- OUTSIDE RECORDS SUMMARY | 2025-01-07 15:12 | External Medical Summary ---
Author Name Unknown Address Unknown Organization K1F:LABORATORY [facility] - [address] [place] [address] Laboratory Report Ordering Provider Test Date Status JODIE MIRANDA 01/04/2025 08:05:00 Final Observation Date Value Abnormality Reference (Units ) Status WBC, Total 01/04/2025 08:05:00 9.55 4.00-10.80 (K/uL) Final RBC 01/04/2025 08:05:00 4.18 3.85-5.15 (M/uL) Final Hemoglobin 01/04/2025 08:05:00 12.3 12.0-15.3 (g/dL) Final HCT 01/04/2025 08:05:00 41.2 36.0-45.2 (%) Final MCV 01/04/2025 08:05:00 98.6 81.5-97.5 (fL) Final MCH 01/04/2025 08:05:00 29.4 27.0-34.0 (pg) Final MCHC 01/04/2025 08:05:00 29.9 32.0-36.0 (g/dL) Final RDW 01/04/2025 08:05:00 14.6 11.5-15.5 (%) Final Platelets 01/04/2025 08:05:00 352 140-400 (K/uL) Final MPV 01/04/2025 08:05:00 8.8 6.6-11.1 (fL) Final Nucleated erythrocytes/100 leukocytes [Ratio] in Blood by Automated count 01/04/2025 08:05:00 0 <=0 (/100 WBCs) Final Performing Location LABORATORY [facility] - [address] [place] [address]
--- OUTSIDE RECORDS SUMMARY | 2025-01-07 15:12 | External Medical Summary ---
Author Name Unknown Address Unknown Organization K1F:LABORATORY [facility] - [address] [place] [address] Laboratory Report Ordering Provider Test Date Status VICKIE CARREON 01/02/2025 18:51:00 Final Observation Date Value Abnormality Reference (Units ) Status CK 01/02/2025 18:51:00 1943 Above high normal 26 -192 (U/L) Final Performing Location LABORATORY [facility] - [address] [place] [address]
--- OUTSIDE RECORDS SUMMARY | 2025-01-07 15:12 | External Medical Summary ---
Author Name Unknown Address Unknown Organization K1F:LABORATORY [facility] - [address] [place] [address] Laboratory Report Ordering Provider Test Date Status VICKIE CARREON 01/03/2025 05:44:00 Final Observation Date Value Abnormality Reference (Units ) Status WBC, Total 01/03/2025 05:44:00 8.49 4.00-10.80 (K/uL) Final RBC 01/03/2025 05:44:00 3.64 3.85-5.15 (M/uL) Final Hemoglobin 01/03/2025 05:44:00 10.7 Below low normal 12.0-15.3 (g/dL) Final HCT 01/03/2025 05:44:00 34.7 Below low normal 36.0-45.2 (%) Final MCV 01/03/2025 05:44:00 95.3 81.5-97.5 (fL) Final MCH 01/03/2025 05:44:00 29.4 27.0-34.0 (pg) Final MCHC 01/03/2025 05:44:00 30.8 32.0-36.0 (g/dL) Final RDW 01/03/2025 05:44:00 14.4 11.5-15.5 (%) Final Platelets 01/03/2025 05:44:00 308 140-400 (K/uL) Final MPV 01/03/2025 05:44:00 9.2 6.6-11.1 (fL) Final Nucleated erythrocytes/100 leukocytes [Ratio] in Blood by Automated count 01/03/2025 05:44:00 0 <=0 (/100 WBCs) Final Performing Location LABORATORY [facility] - [address] [place] [address]
--- OUTSIDE RECORDS SUMMARY | 2025-01-07 15:12 | External Medical Summary ---
Author Name Unknown Address Unknown Organization K1F:LABORATORY [facility] - [address] [place] [address] Laboratory Report Ordering Provider Test Date Status JODIE MIRANDA 01/04/2025 08:05:00 Final Observation Date Value Abnormality Reference (Units ) Status BUN 01/04/2025 08:05:00 7 6-20 (mg/dL) Final Creatinine 01/04/2025 08:05:00 0.6 0.5-1.0 (mg/dL) Final Glomerular filtration rate/1.73 sq M.predicted [Volume Rate/Area] in Serum, Plasma or Blood by Creatinine-based formula (CKD-EPI) 01/04/2025 08:05:00 >90 >=60 (mL/min) Final eGFR is calculated based on the CKD-EPI 2020 equation. Sodium 01/04/2025 08:05:00 142 135-146 (m mol/L) Final Potassium 01/04/2025 08:05:00 3.8 3.5-5.1 (m mol/L) Final Cl 01/04/2025 08:05:00 105 98-107 (mm ol/L) Final CO2 01/04/2025 08:05:00 24 22-32 (mmo l/L) Final Anion gap 01/04/2025 08:05:00 13 7-15 (mmol /L) Final Glucose 01/04/2025 08:05:00 94 70-120 (mg /dL) Final Calcium 01/04/2025 08:05:00 9.0 8.4-10.2 ( mg/dL) Final Performing Location LABORATORY [facility] - [address] [place] [address]
--- OUTSIDE RECORDS SUMMARY | 2025-01-07 15:12 | External Medical Summary | Summary of Care ---
Author Name Unknown Organization [facility] Address [address] [place] [address] Phone [phone] Care Team Providers Care Senior Asic Design Engineer Name Role Phone Jarad Spencer MD Primary Care Provider [phone] Reason for Visit * Reason Onset Date Comments Advice 01/01/2025 Encounter Details Date Type Department Care Team (Late st Contact Info) Description 01/01[facility]20[facility] [address] [place], [place] [phone] Jarad Spencer MD [address] [place], [place] [phone] Advice Allergies Active Allergy Reactions Criticality Noted [...] They would like a call back at [phone] " Attempted to contact patient's friend - [facility] to call us back at [phone]. If Kayla calls back please transfer to nurse line. Thank you. * Telephone Encounter - Santo Mathis OSA - 01/01/2025 1:14 PM EDT Patient's Supervisor Knitting has been notified of the message. Patients Supervisor Knitting has no further questions. * Telephone Encounter [...] They would like a call back at [phone] documented in this encounter Plan of Treatment Upcoming Encounters Date Type Department Care Team (Late st Contact Info) Description 01/11/2025 3:10 PM EDT Home Visit [facility] [address] [place] [address] Derrick Mc[facility] [employer] [address] [place] [address] 04/10/2025 3:20 PM EDT Office Visit [facility] [place] [address] [facility] [place] [address] Jarad Spencer MD 27 [facility] [place] [address] Scheduled Procedures Name Priority Associated Diagnoses Date/Ti [...] D LEVEL ONCE IN A LIFETIME-USE SMARTSET# 72256 Completed 05/31/2024, 04/04/2024, 02/11/2024, Additional history exists [...] this encounter Medical Devices Implanted Type Area Inweaver Device Identifier Shelf Expiration Date Model / Serial / Lot Reunion Rsa Glenoid Baseplate 28mm Implanted:Qty: 1 on 04/17/2019 by Oscar Monge MD at OR [facility] Left: Shoulder BHARATH 11/10/2023 4824-3684 / / [id number] Reunion Rsa Center Screw 6.5 X 24mm Implanted:Qty: 1 on 04/17/2019 by Oscar Monge MD at OR [facility] Left: Shoulder BHARATH 10/11/2023 7638-3116 / / [id number] 4.5mm X 24mm Peripheral Screew Implanted:Qty: 1 on 04/17/2019 by Oscar Monge MD at OR [facility] Left: Shoulder BHARATH : ORTHOPAEDICS 12/11/2023 6054-5518 / / [id number] 4.5mm X 24mm Peripheral Screw Implanted:Qty: 1 on 04/17/2019 by Oscar Monge MD at OR [facility] Left: Shoulder BHARATH : ORTHOPAEDICS 02/01/2024 4310-5152 / / [id number] 4.5mm X 20mm Peripheral Screw Implanted:Qty: 1 on 04/17/2019 by Oscar Monge MD at OR [facility] Left: Shoulder BHARATH : ORTHOPAEDICS 01/02/2024 5993-8682 / / [id number] 2mm Eccentric Glenosphere Implanted:Qty: 1 on 04/17/2019 by Oscar Monge MD at OR [facility] Left: Shoulder BHARATH : ORTHOPAEDICS 11/21/2023 5573-2E-3 602 / / [id number] 36mm X 4mm Humeral Insert Implanted:Qty: 1 on 04/17/2019 by Oscar Monge MD at OR [facility] Left: Shoulder 10/30/2023 5571-S-36 04 / / [id number] Press Fit Humeral Stem Implanted:Qty: 1 on 04/17/2019 by Oscar Monge MD at OR [facility] Left: Shoulder BHARATH : ORTHOPAEDICS 10/30/2023 5567-P-30 11 / / [id number] Humeral Cup Implanted:Qty: 1 on 04/17/2019 by Oscar Monge MD at OR [facility] Left: Shoulder BHARATH : ORTHOPAEDICS 12/27/2023 5242-0123 / / [id number] Reunion Rsa Glenoid Baseplate 28mm Implanted:Qty: 1 on 11/20/2019 by Oscar Monge MD at OR [facility] Right: Shoulder BHARATH 06/14/2024 3852-8247 / / [id number] Reunion Rsa Center Screw 6.5mm X 36mm Implanted:Qty: 1 on 11/20/2019 by Oscar Monge MD at OR [facility] Right: Shoulder BHARATH 12/12/2022 0771-4281 / / [id number] Reunion Rsa Peripheral Screw 4.5mm X 16mm Implanted:Qty: 1 on 11/20/2019 by Oscar Monge MD at OR [facility] Right: Shoulder BHARATH 04/12/2024 2101-3933 / / [id number] Reunion Rsa Peripheral Screw 4.5mm X 20mm Implanted:Qty: 1 on 11/20/2019 by Oscar Monge MD at OR [facility] Right: Shoulder BHARATH 06/06/2024 8591-9332 / / [id number] Reunion Rsa Peripheral Screw 4.5mm X 24mm Implanted:Qty: 1 on 11/20/2019 by Oscar Monge MD at OR [facility] Right: Shoulder BHARATH 05/02/2024 9253-8891 / / [id number] Reunion Rsa X3 Humeral Insert 36mm X 4mm Implanted:Qty: 1 on 11/20/2019 by Oscar Monge MD at OR [facility] Right: Shoulder BHARATH 07/29/2024 5571-S-36 04 / / [id number] Reunion Rsa Humeral Cup 36mm X 4mm Implanted:Qty: 1 on 11/20/2019 by Oscar Monge MD at OR [facility] Right: Shoulder BHARATH 07/30/2024 5992-4850 / / [id number] Reunion Rsa 2mm Eccentric Glenosphere 36mm X 2mm Implanted:Qty: 1 on 11/20/2019 by Oscar Monge MD at OR [facility] Right: Shoulder BHARATH 07/05/2024 5573-2E-3 602 / / [id number] Reunion S Press-Fit Humeral Stem 11mm X 95mm Implanted:Qty: 1 on 11/20/2019 by Oscar Monge MD at OR [facility] Right: Shoulder BHARATH 10/19/2024 5567-P-30 11 / / [id number] Lens Intraoc 24.5 - [id number] - [id number] Implanted:Qty: 1 on 03/20/2021 by Alfonso Guillaume MD at OR [facility] Right: Eye BAUSCH 01/17/2025 [id number] / [id number] / [id number] Lens Intraoc 23.0 - [id number] - [id number] Implanted:Qty: 1 on 03/27/2021 by Alfonso Guillaume MD at OR [facility] Left: Eye BAUSCH 10/20/2025 [id number] / [id number] / [id number] Hv Radiopaque Bone Cement Implanted:Qty: 1 on 06/05/2024 by Atul Hernandez MD at OR [facility] N/A: Spine Lumbar BHARATH 11/17/2024 0406-622- 015 / / [id number] Description:4 cc cement used documented as of [...] the patient have Health Care Power of Zipper Setter Chainstitch? No * Full Code Date Activated Date Inactivated Comments 04/15/2023 11:41 PM 04/15/2023 11:49 PM This order reflects the patients wishes and were consensually agreed upon. Question Answer Comments Discussion of Advance Direct brenda occurred with: Not Discussed due to patient's condition Does the patient have a Living Will? No Does the patient have Health Care Power of Zipper Setter Chainstitch? No * Full Code Date Activated Date [...] have a Living Will? No Care Teams Senior Asic Design Engineer Relationship Specialty Start Date End Date Jarad Spencer MD [address] [facility] [place] [address] PCP - General Family Medicine 08/01/24 documented as of this encounter
--- OUTSIDE RECORDS SUMMARY | 2025-01-07 15:12 | External Medical Summary ---
Author Name Unknown Address Unknown Organization [facility] [address] [facility] [place] [address] Laboratory Report Ordering Provider Test Date Status HARSHAL STRAUSS 01/02/2025 12:54:00 Final Observation Date Value Abnormality Reference (Units ) Status SYNC LEUKOCYTES IN BLOOD BY AUTOMATED COUNT 01/02/2025 12:54:00 9.34 4.00-10.80 (K/uL) Final Segs 01/02/2025 12:54:00 73.6 40.0-75.0 (%) Final Lymphs % 01/02/2025 12:54:00 15.2 Below low normal 18.0-42.0 (%) Final Monos 01/02/2025 12:54:00 8.4 1.0-11.0 (%) Final Eosinophils 01/02/2025 12:54:00 2.0 0.0-6.0 (%) Final Basos 01/02/2025 12:54:00 0.3 0.0-2.0 (%) Final Immature Granulocyte, Percent 01/02/2025 12:54:00 0.5 0.0-2.0 (%) Final Absolute Segs 01/02/2025 12:54:00 6.87 1.80-7.70 (K/uL) Final Lymphs, absolute 01/02/2025 12:54:00 1.42 1.00-4.80 (K/ul) Final Monos, Abs 01/02/2025 12:54:00 0.78 0.00-1.10 (K/uL) Final Eos, Abs 01/02/2025 12:54:00 0.19 0.00-0.70 (K/uL) Final Basos, Abs 01/02/2025 12:54:00 0.03 0.00-0.20 (K/uL) Final Immature Granulocytes, Number 01/02/2025 12:54:00 0.05 0.00-0.20 (K/uL) Final Performing Location [facility] - [address] [place] [address]
--- OUTSIDE RECORDS SUMMARY | 2025-01-07 15:12 | External Medical Summary | Summary of Care ---
Author Name Unknown Organization [facility] Address [address] [place] [address] Phone [phone] Care Team Providers Care Low Pressure Boiler Operator Name Role Phone Jarad Spencer MD Primary Care Provider [phone] Reason for Visit * Reason Onset Date Comments Advice 12/15/2024 12/20 WCB Encounter Details Date Type Department Care Team (Late st Contact Info) Description 12/15/[address] [facility] [place] [address] [place], [place] [phone] Jarad Spencer MD [address] [place] [address] Advice ( 4/2 WCB 01/01/25) Allergies Active [...] No 06/26/2024 Does the household have a [facility] source of income? (Household - for [...] left vm to call us back at [phone]. If Jameson calls back please make him [...] on Jameson's voicemail. Attempted to submit through [employer]. I'm unable to order both the wheelchair [...] wait time. Jameson can be reached at [phone]. * Telephone Encounter - Shea Blanchard LPN - 12/15/2024 11:18 AM EDT Jameson, comp field case manager from [employer]. Coordinate home health after patient is discharged [...] Visit Care Coordination and Integration [address] [place] [address] Derrick Mcfarland [facility] Control Officer Manager [address] [place] [address] 04/10/2025 3:20 PM EDT Office Visit [facility] [place] [address] [place] [address] Jarad Spencer MD [address] [place] [address] Scheduled Procedures Name Priority Associated Diagnoses Date/Ti [...] D LEVEL ONCE IN A LIFETIME-USE SMARTSET# 87877 Completed 05/31/2024, 04/04/2024, 02/11/2024, Additional history exists [...] this encounter Medical Devices Implanted Type Area Hard Rock Miner Device Identifier Shelf Expiration Date Model / Serial / Lot Reunion Rsa Glenoid Baseplate 28mm Implanted:Qty: 1 on 04/17/2019 by Oscar Monge MD at OR [facility] Left: Shoulder BHARATH 11/10/2023 2836-3121 / / [id number] Reunion Rsa Center Screw 6.5 X 24mm Implanted:Qty: 1 on 04/17/2019 by Oscar Monge MD at OR [facility] Left: Shoulder BHARATH 10/11/2023 4353-9141 / / [id number] 4.5mm X 24mm Peripheral Screew Implanted:Qty: 1 on 04/17/2019 by Oscar Monge MD at OR [facility] Left: Shoulder BHARATH : ORTHOPAEDICS 12/11/2023 8102-0608 / / [id number] 4.5mm X 24mm Peripheral Screw Implanted:Qty: 1 on 04/17/2019 by Oscar Monge MD at OR [facility] Left: Shoulder BHARATH : ORTHOPAEDICS 02/01/2024 7616-2553 / / [id number] 4.5mm X 20mm Peripheral Screw Implanted:Qty: 1 on 04/17/2019 by Oscar Monge MD at OR [facility] Left: Shoulder BHARATH : ORTHOPAEDICS 01/02/2024 0753-5150 / / [id number] 2mm Eccentric Glenosphere Implanted:Qty: 1 on 04/17/2019 by Oscar Monge MD at OR [facility] Left: Shoulder BHARATH : ORTHOPAEDICS 11/21/2023 5573-2E-3 602 / / [id number] 36mm X 4mm Humeral Insert Implanted:Qty: 1 on 04/17/2019 by Oscar Monge MD at OR [facility] Left: Shoulder 10/30/2023 5571-S-36 04 / / [id number] Press Fit Humeral Stem Implanted:Qty: 1 on 04/17/2019 by Oscar Monge MD at OR [facility] Left: Shoulder BHARATH : ORTHOPAEDICS 10/30/2023 5567-P-30 11 / / [id number] Humeral Cup Implanted:Qty: 1 on 04/17/2019 by Oscar Monge MD at OR [facility] Left: Shoulder BHARATH : ORTHOPAEDICS 12/27/2023 4414-4312 / / [id number] Reunion Rsa Glenoid Baseplate 28mm Implanted:Qty: 1 on 11/20/2019 by Oscar Monge MD at OR [facility] Right: Shoulder BHARATH 06/14/2024 2728-3952 / / [id number] Reunion Rsa Center Screw 6.5mm X 36mm Implanted:Qty: 1 on 11/20/2019 by Oscar Monge MD at OR [facility] Right: Shoulder BHARATH 12/12/2022 5320-4939 / / [id number] Reunion Rsa Peripheral Screw 4.5mm X 16mm Implanted:Qty: 1 on 11/20/2019 by Oscar Monge MD at OR [facility] Right: Shoulder BHARATH 04/12/2024 3705-0572 / / [id number] Reunion Rsa Peripheral Screw 4.5mm X 20mm Implanted:Qty: 1 on 11/20/2019 by Oscar Monge MD at OR [facility] Right: Shoulder BHARATH 06/06/2024 8933-7098 / / [id number] Reunion Rsa Peripheral Screw 4.5mm X 24mm Implanted:Qty: 1 on 11/20/2019 by Oscar Monge MD at OR [facility] Right: Shoulder BHARATH 05/02/2024 6526-4277 / / [id number] Reunion Rsa X3 Humeral Insert 36mm X 4mm Implanted:Qty: 1 on 11/20/2019 by Oscar Monge MD at OR [facility] Right: Shoulder BHARATH 07/29/2024 5571-S-36 04 / / [id number] Reunion Rsa Humeral Cup 36mm X 4mm Implanted:Qty: 1 on 11/20/2019 by Oscar Monge MD at OR [facility] Right: Shoulder BHARATH 07/30/2024 7493-8066 / / [id number] Reunion Rsa 2mm Eccentric Glenosphere 36mm X 2mm Implanted:Qty: 1 on 11/20/2019 by Oscar Monge MD at OR [facility] Right: Shoulder BHARATH 07/05/2024 5573-2E-3 602 / / [id number] Reunion S Press-Fit Humeral Stem 11mm X 95mm Implanted:Qty: 1 on 11/20/2019 by Oscar Monge MD at OR [facility] Right: Shoulder BHARATH 10/19/2024 5567-P-30 11 / / [id number] Lens Intraoc 24.5 - [id number] - [id number] Implanted:Qty: 1 on 03/20/2021 by Alfonso Guillaume MD at OR [facility] Right: Eye BAUSCH 01/17/2025 [id number] / [id number] / [id number] Lens Intraoc 23.0 - [id number] - [id number] Implanted:Qty: 1 on 03/27/2021 by Alfonso Guillaume MD at OR [facility] Left: Eye BAUSCH 10/20/2025 [id number] / [id number] / Vertaplex Hv Radiopaque Bone Cement Implanted:Qty: 1 on 06/05/2024 by Atul Hernandez MD at OR [facility] N/A: Spine Lumbar BHARATH 11/17/2024 0406-622- 015 / / [id number] Description:4 cc cement used documented as of this encounter Visit Diagnoses Diagnosis Status post hip surgery- Primary Age-related osteoporosis without current pathological fracture Senile osteoporosis COPD, group B, by GOLD 2017 classification ([facility]) Delusional disorder (HCC) Bipolar I disorder, most [...] the patient have Health Care Power of Motion Picture Camera Operator? No * Full Code Date Activated Date Inactivated Comments 04/15/2023 11:41 PM 04/15/2023 11:49 PM This order reflects the patients wishes and were consensually agreed upon. Question Answer Comments Discussion of Advance Direct brenda occurred with: Not Discussed due to patient's condition Does the patient have a Living Will? No Does the patient have Health Care Power of Motion Picture Camera Operator? No * Full Code Date Activated Date [...] have a Living Will? No Care Teams Low Pressure Boiler Operator Relationship Specialty Start Date End Date Jarad Spencer MD [address] [facility] [place] [address] PCP - General Family Medicine 08/01/24 documented as of this encounter
--- OUTSIDE RECORDS SUMMARY | 2025-01-07 15:12 | External Medical Summary ---
Author Name Unknown Address Unknown Organization K1F:[facility] - [address] [place] [address] Laboratory Report Ordering Provider Test Date Status VICKIE CARREON 01/03/2025 05:44:00 Final Observation Date Value Abnormality Reference (Units ) Status BUN 01/03/2025 05:44:00 10 6-20 (mg/dL) Final Creatinine 01/03/2025 05:44:00 0.7 0.5-1.0 (mg/dL) Final Glomerular filtration rate/1.73 sq M.predicted [Volume Rate/Area] in Serum, Plasma or Blood by Creatinine-based formula (CKD-EPI) 01/03/2025 05:44:00 >90 >=60 (mL/min) Final eGFR is calculated based on the CKD-EPI 2020 equation. Sodium 01/03/2025 05:44:00 140 135-146 (m mol/L) Final Potassium 01/03/2025 05:44:00 3.4 Below low normal 3.5 -5.1 (mmol/L) Final Cl 01/03/2025 05:44:00 107 98-107 (mm ol/L) Final CO2 01/03/2025 05:44:00 21 Below low normal 22- 32 (mmol/L) Final Anion gap 01/03/2025 05:44:00 12 7-15 (mmol /L) Final Glucose 01/03/2025 05:44:00 101 70-120 (mg /dL) Final Albumin 01/03/2025 05:44:00 3.1 Below low normal 3.8 -5.0 (g/dL) Final AST (Aspartate aminotransferase) 01/03/2025 05:44:00 70 Above high normal 10-35 (U/L) Final Alk Phos 01/03/2025 05:44:00 90 35-130 (U/ L) Final Bilirubin, Total 01/03/2025 05:44:00 0.3 <=1 .2 (mg/dL) Final Calcium 01/03/2025 05:44:00 8.6 8.4-10.2 ( mg/dL) Final Protein 01/03/2025 05:44:00 5.5 Below low normal 6.0 -8.3 (g/dL) Final ALT (Alanine aminotransferase) 01/03/2025 05:44:00 41 Above high normal 10-35 (U/L) Final Performing Location LABORATORY [facility] - [facility] [place] [address]
--- OUTSIDE RECORDS SUMMARY | 2025-01-07 15:12 | External Medical Summary ---
Author Name Unknown Address Unknown Organization K1F:[facility] - [address] [place] [address] Laboratory Report Ordering Provider Test Date Status HARSHAL STRAUSS 01/02/2025 12:54:00 Final Observation Date Value Abnormality Reference (Units ) Status Magnesium 01/02/2025 12:54:00 2.1 1.5-2.6 (m g/dL) Final Performing Location [facility] - [address] [place] [address]
--- OUTSIDE RECORDS SUMMARY | 2025-01-07 15:13 | External Medical Summary | Summary of Care ---
Author Name Unknown Organization [facility] Address [address] [place] [address] Phone [phone] Care Team Providers Care Truck Sales Manager Name Role Phone Jarad Spencer MD Primary Care Provider [phone] Reason for Visit * Reason Onset Date Comments Encounter Created in Error 12/15/2024 Encounter Details Date Type Department Care Team (Late st Contact Info) Description [facility] [facility] [place] [phone] Jarad Spencer MD [address] [place] [address] Encounter Created in Error Allergies Active Allergy Reactions Criticality Noted Date Comments Diphenhydramine Hcl Itching 10/24/2009 Ceftriaxone Hives 11/23/2020 documented as of this encounter (statuses as of 12/15/2024) Medications Omeprazole 40 MG Oral Capsule Delayed [...] day 15 Tablet 12/06/2024 6:19 PM EDT 03/10/202 5 Active documented as of this encounter (statuses as of 12/15/2024) Active Problems Problem Noted Date Diagnosed Date [...] as of this encounter (statuses as of 12/15/2024) Resolved Problems Problem Noted Date Diagnosed Date [...] as of this encounter (statuses as of 12/15/2024) Immunizations Name Administration Dates Next Due COVID-19 [...] No 06/26/2024 Does the household have a [employer] fl[employer] source of income? (Household - for ages [...] Sofi Marcelo RN documented in this encounter Plan of Treatment Upcoming Encounters Date Type Department Care Team (Late st Contact Info) Description 04/10/2025 3:20 PM EDT Office Visit [facility] [address] [facility] [place] [address] Jarad Spencer MD 27 [facility] [place] [address] Scheduled Procedures Name Priority Associated Diagnoses Date/Ti [...] D LEVEL ONCE IN A LIFETIME-USE SMARTSET# 99735 Completed 05/31/2024, 04/04/2024, 02/11/2024, Additional history exists [...] this encounter Medical Devices Implanted Type Area Statistical Secretary Device Identifier Shelf Expiration Date Model / Serial / Lot Reunion Rsa Glenoid Baseplate 28mm Implanted:Qty: 1 on 04/17/2019 by Oscar Monge MD at OR [facility] Left: Shoulder BHARATH 11/10/2023 6076-9089 / / [id number] Reunion Rsa Center Screw 6.5 X 24mm Implanted:Qty: 1 on 04/17/2019 by Oscar Monge MD at OR [facility] Left: Shoulder BHARATH 10/11/2023 4784-4473 / / [id number] 4.5mm X 24mm Peripheral Screew Implanted:Qty: 1 on 04/17/2019 by Oscar Monge MD at OR [facility] Left: Shoulder BHARATH : ORTHOPAEDICS 12/11/2023 0921-7581 / / [id number] 4.5mm X 24mm Peripheral Screw Implanted:Qty: 1 on 04/17/2019 by Oscar Monge MD at OR [facility] Left: Shoulder BHARATH : ORTHOPAEDICS 02/01/2024 6573-3637 / / [id number] 4.5mm X 20mm Peripheral Screw Implanted:Qty: 1 on 04/17/2019 by Oscar Monge MD at OR [facility] Left: Shoulder BHARATH : ORTHOPAEDICS 01/02/2024 8332-8460 / / [id number] 2mm Eccentric Glenosphere Implanted:Qty: 1 on 04/17/2019 by Oscar Monge MD at OR [facility] Left: Shoulder BHARATH : ORTHOPAEDICS 11/21/2023 5573-2E-3 602 / / [id number] 36mm X 4mm Humeral Insert Implanted:Qty: 1 on 04/17/2019 by Oscar Monge MD at OR [facility] Left: Shoulder 10/30/2023 5571-S-36 04 / / [id number] Press Fit Humeral Stem Implanted:Qty: 1 on 04/17/2019 by Oscar Monge MD at OR [facility] Left: Shoulder BHARATH : ORTHOPAEDICS 10/30/2023 5567-P-30 11 / / [id number] Humeral Cup Implanted:Qty: 1 on 04/17/2019 by Oscar Monge MD at OR [facility] Left: Shoulder BHARATH : ORTHOPAEDICS 12/27/2023 6045-6604 / / [id number] Reunion Rsa Glenoid Baseplate 28mm Implanted:Qty: 1 on 11/20/2019 by Oscar Monge MD at OR [facility] Right: Shoulder BHARATH 06/14/2024 7499-5796 / / [id number] Reunion Rsa Center Screw 6.5mm X 36mm Implanted:Qty: 1 on 11/20/2019 by Oscar Monge MD at OR [facility] Right: Shoulder BHARATH 12/12/2022 6583-4733 / / [id number] Reunion Rsa Peripheral Screw 4.5mm X 16mm Implanted:Qty: 1 on 11/20/2019 by Oscar Monge MD at OR [facility] Right: Shoulder BHARATH 04/12/2024 5973-8885 / / [id number] Reunion Rsa Peripheral Screw 4.5mm X 20mm Implanted:Qty: 1 on 11/20/2019 by Oscar Monge MD at OR [facility] Right: Shoulder BHARATH 06/06/2024 9609-3255 / / [id number] Reunion Rsa Peripheral Screw 4.5mm X 24mm Implanted:Qty: 1 on 11/20/2019 by Oscar Monge MD at OR [facility] Right: Shoulder BHARATH 05/02/2024 5301-7561 / / [id number] Reunion Rsa X3 Humeral Insert 36mm X 4mm Implanted:Qty: 1 on 11/20/2019 by Oscar Monge MD at OR [facility] Right: Shoulder BHARATH 07/29/2024 5571-S-36 04 / / [id number] Reunion Rsa Humeral Cup 36mm X 4mm Implanted:Qty: 1 on 11/20/2019 by Oscar Monge MD at OR [facility] Right: Shoulder BHARATH 07/30/2024 1430-3604 / / [id number] Reunion Rsa 2mm Eccentric Glenosphere 36mm X 2mm Implanted:Qty: 1 on 11/20/2019 by Oscar Monge MD at OR [facility] Right: Shoulder BHARATH 07/05/2024 5573-2E-3 602 / / [id number] Reunion S Press-Fit Humeral Stem 11mm X 95mm Implanted:Qty: 1 on 11/20/2019 by Oscar Monge MD at OR [facility] Right: Shoulder BHARATH 10/19/2024 5567-P-30 11 / / [id number] Lens Intraoc 24.5 - [id number] - [id number] Implanted:Qty: 1 on 03/20/2021 by Alfonso Guillaume MD at OR [facility] Right: Eye BAUSCH & LOMB 01/17/2025 [id number] / [id number] / [id number] Lens Intraoc 23.0 - [id number] - [id number] Implanted:Qty: 1 on 03/27/2021 by Alfonso Guillaume MD at OR [facility] Left: Eye BAUSCH & LOMB 10/20/2025 [id number] / [id number] / Vertaplex Hv Radiopaque Bone Cement Implanted:Qty: 1 on 06/05/2024 by Atul Hernandez MD at OR [facility] N/A: Spine Lumbar BHARATH 11/17/2024 0406-622- 015 / / [id number] Description:4 cc cement used documented as of [...] the patient have Health Care Power of Account Support Manager? No * Full Code Date Activated Date Inactivated Comments 04/15/2023 11:41 PM 04/15/2023 11:49 PM This order reflects the patients wishes and were consensually agreed upon. Question Answer Comments Discussion of Advance Direct brenda occurred with: Not Discussed due to patient's condition Does the patient have a Living Will? No Does the patient have Health Care Power of Account Support Manager? No * Full Code Date Activated Date [...] have a Living Will? No Care Teams Truck Sales Manager Relationship Specialty Start Date End Date Jarad Spencer MD 27 [facility] [place] [address] PCP - General Family Medicine 08/01/24 documented as of this encounter
[2025-01-07] MEDS ORDERED: ONDANSETRON INJ 2 MG/ML 2 ML VIAL IV PRN (15:17)
[2025-01-07] MEDS ORDERED: ALUMINUM/MAGNESIUM SUSP 30 ML UDC PO PRN (15:17)
[2025-01-07] MEDS ORDERED: MAGNESIUM HYDROXIDE SUSP 30 ML UDC PO PRN (15:17)
[2025-01-07] MEDS ORDERED: MoRPHine SULFATE 2 MG/ML CARP IV PRN (15:57)
--- NOTE | 2025-01-07 16:10 | History & Physical Report ---
Date of Service January 07, 2025 Assessment & Plan (1) Osteoarthritis of right hip: Plan Right hip pain affecting activities of daily living Right hip osteoarthritis x severe Per signout from [facility], patient has a plan for surgery under Dr. Tao on 01/08 for right hip. Patient admitted for her surgery tomorrow. Continue with pain management, bowel regimen, nausea control. PT/OT and chemo DVT prophylaxis once cleared per orthopedic surgery. RCRI 3.9% of major cardiac event. Other chronic medical conditions: Continue with/resume home meds as and when able HLD, her outpatient chart states that she is not taking atorvastatin. COPD: Stable, continue as needed inhalers. GERD: Continue PPI Vitamin D deficiency: Continue supplement. Psychiatric illness [delusional disorder, bipolar 1 disorder, GUERITA]: Continue home psychiatric medications. Patient not aware of her chronic home medications reliably nor was able to give contact number of her caregiver who would be able to tell us her home medications. Based on outpatient chart review, patient's home gabapentin at 300 Mg 3 times daily, vitamin D3 at 50 mcg daily, lamotrigine at 100 Mg twice daily, losartan at 25 Mg daily, pantoprazole at 40 Mg daily, ropinirole at 0.25 Mg twice daily, sertraline at 150 Mg daily has been started. This needs to be confirmed once we have contact number of her caregiver Sarika Ramirez. DVT prophylaxis: SCDs for now Full code Admission and Anticipated Discharge Date Admission Date: January 07, 2025 History of Present Illness Chief Complaint: 69-year-old lady with PMH of HLD, prediabetes, COPD, chronic constipation, GERD, vitamin D deficiency, primary osteoarthritis of right hip, tobacco dependence, bipolar disorder, alcohol dependence in remission, delusional disorder, bipolar 1 disorder, GUERITA, recurrent falls is a direct admit from [facility]. Patient presented to [facility] due to her right hip and right knee pain affecting her activities of daily living, pain was not bearable. Since patient had surgery scheduled for tomorrow for right hip at [facility], patient was transferred to [facility]. Patient denies any febrile illness or flulike illness in the last week. Patient denies sore throat/cough/chest pain/acute changes in her bowel or bladder habit. Patient reports appetite being normal, denies nausea or vomiting. Patient reports currently vaping and does not smoke tobacco, currently using 1-2 drinks of alcohol a week, denies recreational drug use. Tried to review her home medication list that I printed from her outpatient office chart, patient does not seem to be aware of her medications. Patient states that her caregiver Sarika Ramirez takes care of her medication, patient did not have phone number of her caregiver nor did she have phone number of her siblings who would be able to give the phone number for her caregiver. Will try best to figure out what medications she actually is taking and will continue while she is inpatient until contact with the Sarika Jonas is established. Further f/u on this required by oncoming team. Full code Plan of care discussed with patient in detail, she voiced understanding. Primary Care Provider: Jarad Spencer MD Allergies Allergy/AdvReac Type Severity Reaction Status Date / Time No Known Allergies Allergy Verified 12/08/24 07:38 Home Medications Medication Instructions Recorded Confirmed Type aripiprazole 10 mg tablet 10 mg PO QAM 11/08/24 12/08/24 History atorvastatin 10 mg tablet (Lipitor) 10 mg PO QAM 11/08/24 12/08/24 History celecoxib 100 mg capsule (Celebrex) 100 mg PO BID PRN pain #60 caps 11/08/24 12/08/24 Rx fluoxetine 40 mg capsule (Prozac) 40 mg PO QAM 11/08/24 12/08/24 History lamotrigine 100 mg tablet 100 mg PO QPM 12/08/24 12/08/24 History losartan 25 mg tablet 25 mg PO QAM 12/08/24 12/08/24 History ropinirole 0.25 mg tablet 0.25 mg PO QPM 12/08/24 12/08/24 History sertraline 100 mg tablet 100 mg PO QAM 12/08/24 12/08/24 History tramadol 50 mg tablet 50 mg PO Q8H PRN pain #30 tabs 12/22/24 Rx Past Med/Surg History Problem List Encounter for pre-operative examination Osteoarthritis of right hip Instability of internal right knee prosthesis, initial encounter Medical History Acid reflux controlled, stable per pt Depression Dyslipidemia History of COVID-19 (2020) no hosp; resolved HTN (hypertension) controlled, stable per pt Osteoarthritis Poor historian Schizophrenia Surgical History History of arthroplasty of both shoulders History of partial knee replacement right Hx of bilateral cataract extraction Hx of cholecystectomy Hx of hysterectomy Social History Smoking Status: Current every day smoker (-advised) Tobacco Type: E-cigarettes / Vaping Cigarettes Per Day: VAPES DAILY- DAILY; Second Hand Exposure: No; Do You Dip or Chew Tobacco: No; Hx Alcohol Use: Yes Alcohol type: beer Hx Substance Use: No Preferred Language: Occitan Communication Ability: Effective Glass Engraver Required: No Beliefs That Will Affect Care: None Current Living Situation: Alone Feels Safe at Home: Yes Assistive Devices: Cane, Glasses, Walker and Wheelchair Review of Systems Review of Systems: Negative otherwise mentioned in HPI. Physical Exam Physical Exam: GENERAL: Alert and oriented x3. NAD, on RA. HEENT: No pallor, no icterus. Pupils equal, round and reactive to light. Oral mucosa moist. NECK: No JVD, no neck masses. HEART: S1 and S2 heard. Regular rate and rhythm. No murmur, no gallop. RESPIRATORY SYSTEM: Normal AP diameter. No accessory muscle use. No wheezing, no crackles. ABDOMEN: Soft, bowel sounds present, nontender, no distention. CENTRAL NERVOUS SYSTEM: No facial droop. Speech is clear. Obeys simple commands. Moves extremities. EXTREMITIES: No edema, no erythema seen. RLE - painful rom at hip and knee, no swelling/erythema/tenderness noted. b/l hands w/ arthritic changes. Results & Data Results & Data Vital Signs (Past 12 Hours) Vital Signs Temp Pulse Resp BP Pulse Ox O2 Del Method 01/07/25 15:36 36.4 C L 95 H 18 121/57 L 94 Room Air
[2025-01-07] MEDS: CHOLECALCIFEROL 25 MCG (1000 UNITS) TAB PO SCH (16:49)
[2025-01-07] MEDS: GABAPENTIN 300 MG CAP PO SCH (20:24)
[2025-01-07] MEDS: BENZTROPINE MESYLATE 0.5 MG TAB PO SCH (20:24)
[2025-01-07] MEDS: DOCUSATE SODIUM 100 MG CAP PO SCH (20:24)
[2025-01-07] MEDS: rOPINIRole HCL 0.25 MG TABLET PO SCH (20:24)
[2025-01-07] MEDS: lamoTRIgine 100 MG TAB PO SCH (20:24)
[2025-01-08] MEDS ORDERED: LIDOCAINE 2% 2 ML VIAL/AMP(20MG/ML) INFIL ONE (06:34)
[2025-01-08] MEDS ORDERED: PROPOFOL IV EMULSION 10 MG/ML 20 ML VIAL IV ONE (06:34)
[2025-01-08 06:38] LABS: Hematocrit (blood only) 37.9 % (37.0-47.0); Hemoglobin 12.1 g/dl (12.0-16.0); Mean Corpuscular Hgb Conc 31.9 g/dL (32.0-36.0); Mean Corpuscular Volume 90.9 fL (80.0-100.0); Mean Platelet Volume 8.9 fL (9.4-12.4); Platelet Count 332 K/uL (130-400); RDW Standard Deviation 47.1 fL (36.4-46.3); Red Blood Count 4.17 M/uL (4.20-5.40); White Blood Count 9.07 K/ul (4.8-10.8)
[2025-01-08] MEDS ORDERED: ATROPINE SULFATE 0.1 MG/ML 10ML SYR IV PRN (06:44)
[2025-01-08] MEDS ORDERED: ONDANSETRON INJ 2 MG/ML 2 ML VIAL IV PRN ×2 (06:44→10:29)
[2025-01-08] MEDS ORDERED: HYDROmorphone INJ 1 MG/ML SYRINGE IV PRN (06:44)
[2025-01-08] MEDS ORDERED: ePHEDrine sulfate 50 MG/ML AMP IV PRN (06:44)
--- NOTE | 2025-01-08 06:44 | Anesthesiology Consultation ---
Date of Service January 08, 2025 Assessment & Plan ASA ASA3 Proposed Anesthesia Anesthesia Type: General Risk / Benefits Reviewed With: PT / POA / Parent / Guardian, Accepts Plan and Informed Consent Obtained History Surgery Operation Date: 01/08/25 07:00 Proposed Procedures p Right Anterior Total Hip Arthroplasty - Parker Tao, Height/Weight Height: 4 ft 8 in Weight: 70.632 kg Allergies Allergy/AdvReac Type Severity Reaction Status Date / Time No Known Allergies Allergy Verified 01/08/25 06:42 Medications Home Medications Medication Instructions Recorded Confirmed Last Taken aripiprazole 10 mg tablet 10 mg PO QAM 11/08/24 01/07/25 01/07/25 atorvastatin 10 mg tablet (Lipitor) 40 mg PO QAM 11/08/24 01/07/25 01/07/25 09:24 celecoxib 100 mg capsule (Celebrex) 100 mg PO BID PRN pain #60 caps 11/08/24 12/08/24 Unknown fluoxetine 40 mg capsule (Prozac) 40 mg PO QAM 11/08/24 01/07/25 01/07/25 lamotrigine 100 mg tablet 100 mg PO QPM 12/08/24 01/07/25 01/07/25 losartan 25 mg tablet 25 mg PO QAM 12/08/24 01/07/25 01/07/25 16:23 ropinirole 0.25 mg tablet 0.25 mg PO QPM 12/08/24 01/07/25 Unknown sertraline 100 mg tablet 150 mg PO QAM 12/08/24 01/07/25 01/07/25 16:22 tramadol 50 mg tablet 50 mg PO Q8H PRN pain #30 tabs 12/22/24 Unknown Active Medications Generic Name Dose Route Start Last Admin Trade Name Freq PRN Reason Stop Dose Admin Benztropine Mesylate 0.5 mg 01/07/25 21:00 01/07/25 20:24 Benztropine Mesylate 0.5 Mg Tab PO 02/06/25 20:59 0.5 mg HS TIFF Administration Docusate Sodium 100 mg 01/07/25 21:00 01/07/25 20:24 Docusate Sodium 100 Mg Cap PO 02/06/25 20:59 100 mg BID TIFF Administration Gabapentin 300 mg 01/07/25 21:00 01/07/25 20:24 Gabapentin 300 Mg Cap PO 02/06/25 20:59 300 mg TID TIFF Administration Lamotrigine 100 mg 01/07/25 21:00 01/07/25 20:24 Lamotrigine 100 Mg Tab PO 02/06/25 20:59 100 mg BID TIFF Administration Protocol Ropinirole HCl 0.25 mg 01/07/25 21:00 01/07/25 20:24 Ropinirole Hcl 0.25 Mg Tablet PO 02/06/25 20:59 0.25 mg BID TIFF Administration Vitamin D 50 mcg 01/07/25 16:15 01/07/25 16:49 Cholecalciferol 25 Mcg (1000 Units) Tab PO 02/06/25 16:14 50 mcg QAM TIFF Administration NPO Date Last Intake of Fluids: 01/07/25 Time Last Intake of Fluids: 17:00 Date Last Intake of Solids: 01/07/25 Time Last Intake of Solids: 17:00 Past Medical History Medical History Osteoarthritis Acid reflux controlled, stable per pt Poor historian Depression Schizophrenia History of COVID-19 (2020) no hosp; resolved HTN (hypertension) controlled, stable per pt Dyslipidemia Exercise / Class Metabolic Activity II 4-5 Yardwork/Stairs/Walk up hill Past Surgical History Surgical History History of partial knee replacement right Hx of bilateral cataract extraction Hx of cholecystectomy Hx of hysterectomy History of arthroplasty of both shoulders Past Anesthesia History No Hx of Anesthesia Complications and No Family Hx of Anesthesia Complications History of PONV No Hx of PONV and No Hx of Motion Sickness Social History Smoking Status: Current every day smoker Smoking cigarettes per day: VAPES DAILY- DAILY Do You Dip or Chew Tobacco: No Hx Alcohol Use: Yes Alcohol type: beer alcohol intake frequency: a few times a week Hx Substance Use: No substance use type: does not use Review of Systems denies fever/cough/ colds/ chest pain/ SOB/ BRYCE denies BRYCE Physical Exam Vital Signs Last Vital Signs Temp 36.8 C 01/08/25 06:22 Pulse 88 01/08/25 06:22 Resp 18 01/08/25 06:22 BP 145/83 H 01/08/25 06:22 Pulse Ox 95 01/08/25 06:22 O2 Del Method Room Air 01/08/25 06:22 ENMT Mouth: no TMJ abnormality and no dentition abnormality Thyromental Distance: > or= 3.5 Finger Breadths Mallampati Class: II Neck neck extension not limited Respiratory normal respiratory effort; no respiratory distress Auscultation: lungs clear to auscultation bilaterally Cardiovascular Rate/Rhythm: regular rate and regular rhythm Neurologic moves all extremities Psychiatric Orientation: alert and oriented x 3 Testing Laboratory Results 01/08/25 06:19
[2025-01-08] MEDS: LR 15ML/HR IV SCH (06:46)
[2025-01-08] MEDS: GABAPENTIN 300 MG CAP PO SCH (06:46)
[2025-01-08] MEDS: dexAMETHasone**PF** 10 MG/ML VIAL IV SCH (06:46)
[2025-01-08] MEDS: ACETAMINOPHEN 325 MG TAB PO PRN (06:46)
[2025-01-08] MEDS: FAMOTIDINE 20 MG TAB PO SCH (06:46)
[2025-01-08] MEDS: LR 60ML/HR IV SCH (06:47)
[2025-01-08 06:54] LABS: BUN Creatinine Ratio 15.3 (10-20); Calcium 9.3 mg/dl (8.6-10.3); Creatinine Clr Calc Pharmacy 56.6 ml/min; Magnesium 2.2 mg/dl (1.7-2.4); Phosphorus 3.8 mg/dl (2.5-4.9); Potassium 4.3 mmol/L (3.5-5.1)
--- NOTE | 2025-01-08 07:08 | History & Physical Bridge Note ---
Date of Service January 08, 2025 History & Physical Bridge Note I have examined the patient, reviewed the History & Physical and in the interval since the performance of the History & Physical I have noted the following changes of clinical significance: no changes noted
[2025-01-08] MEDS: ceFAZolin 2000MG 2,000 MG/15 ML SYR IV SCH (07:10)
[2025-01-08] MEDS: TRANEXAMIC ACID 1,000 MG **IV Pre-op IV SCH (07:10)
[2025-01-08] MEDS: ROPIV 0.5% 246mg, Ketorolac 30mg, EPINEPHrine 0.5mg in NSS INFIL SCH (07:41)
[2025-01-08] MEDS: ORTHO JOINT ANESTHETIC ONE (07:42)
[2025-01-08] MEDS: TRANEXAMIC ACID 1,000 MG **IV Intra-op IV SCH (08:22)
--- NOTE | 2025-01-08 08:25 | Operative Report ---
PG Post Operative Report Pre & Post Diagnosis Operation Date: 01/08/25 07:00 Pre-Op Diagnosis: Osteoarthritis of right hip Post-Op Diagnosis: Osteoarthritis of right hip I identified the patient and participated in the time-out.: Yes Procedure Operation Date: 01/08/25 07:00 Actual Procedures p Right Anterior Total Hip Arthroplasty, Cemented(Right) - Parker Tao DO Surgeon Parker Tao DO [employer] Luis E Lucero PA-C Estimated Blood Loss 150 Findings Consistent with Post-Op Diagnosis Specimens Right femoral head Description of Procedure Implants used I used a [employer]immer[employer] total hip arthroplasty system with a size 7 cemented echo stem, a 48 mm G7 cup with a 25mm screw, an E1 polyethylene liner, a 32 mm cera jed head with a 0 neck. Laura arrived at the hospital for the above procedure. She was seen in the preoperative holding area and the operative extremity was identified and signed. She was given a preoperative antibiotic, and TXA. She was then taken back to the operating room and laid on the table in the supine position. She was given general anesthesia. The operative leg was secured to a Puristst leg positioner. The hip was then prepped and draped in sterile fashion. A timeout was done and the patient and the operative extremity was properly identified. An anterior approach was used. Dissection was taken down through the fascia and the tensor muscle belly was retracted laterally and the rectus was retracted medially. The circumflex vessels were identified and ligated. The capsule was then incised and tagged for later repair. The femoral neck was then cut and the femoral head was removed. The acetabulum was exposed. Time was spent doing a complete circumferential labral release. Sequential reaming of the acetabulum up to a size 47 reamer was done. Final reamings were done under fluoroscopy to ensure appropriate version. A Biomet 48 mm G7 cup was then impacted into place. A single 25 mm screw was placed. The E1 polyethylene liner was then snapped into place. Surrounding soft tissues were then injected with 100 cc of an orthopedic pain control cocktail. The proximal femur was then exposed. Sequential broaching up to a size 8 broach was done. Off that broach a size 32 head with a 0 neck was trialed. The hip was reduced and fluoroscopic images showed anatomic alignment of the implants in acceptable length. The broach was removed. The final size 7 cemented echo stem was then cemented into place. A ceramic 32 mm head with a 0 neck was then impacted onto the stem and the hip was reduced. Final fluoroscopic images showed anatomic alignment of the hip. The capsule was then closed with #1 Vicryl suture. A dilute betadyne lavage was then done for 3 minutes. The joint was then irrigated with normal saline solution. The fascia was closed with #1 PDS suture. Skin was closed with 2-0 Vicryl, galo, and a Silverlon dressing. She was then transferred to a hospital bed and taken to the post anesthesia care unit in stable condition. She tolerated the procedure well. Luis E Lucero PA-C, was present for the entire procedure. He was critical for pa tient positioning, prepping, draping, retraction exposure, wound closure and application of sterile dressing. I attest to the content of the Intraoperative Record and any orders documented therein. Any exceptions are noted below.
[2025-01-08] MEDS ORDERED: ATORVASTATIN 40 MG TAB PO SCH (09:00)
[2025-01-08] MEDS: fentaNYL citrate PF 100 MCG/2 ML VIAL IV PRN (09:13)
--- NOTE | 2025-01-08 09:36 | XRay Report ---
XR hip 1V RT w pelvis CLINICAL HISTORY: IN PACU - Post Surgical COMPARISON: None FINDINGS: Right hip prosthesis shows no hardware complication. No fracture or dislocation. There is expected soft tissue gas. Skin galo are present. IMPRESSION: Unremarkable postoperative exam. ACT 112: Negative or not required by law. Electronically signed by: Santo Gonzalez M.D. 01/08/2025 9:35 AM
--- NOTE | 2025-01-08 09:38 | Anesthesiology Progress Note ---
Date of Service January 08, 2025 Anesthesia Post Procedure Vital Signs Vital Signs: Temp Pulse Pulse Resp BP BP Pulse Ox 01/08/25 09:20 99 H 18 140/72 95 01/08/25 09:10 98 H 20 160/78 H 95 01/08/25 09:00 101 H 18 176/75 H 99 01/08/25 08:50 36.6 C 104 H 18 170/78 H 98 01/08/25 06:22 36.8 C 88 18 145/83 H 95 01/07/25 19:49 36.8 C 76 18 106/64 94 01/07/25 19:10 01/07/25 15:36 36.4 C L 95 H 18 121/57 L 94 O2 Del Method O2 Flow Rate 01/08/25 09:20 Oxymask 4 01/08/25 09:10 Oxymask 4 01/08/25 09:00 Oxymask 10 01/08/25 08:50 Oxymask 10 01/08/25 06:22 Room Air 01/07/25 19:49 Room Air 01/07/25 19:10 Room Air 01/07/25 15:36 Room Air Pain Intensity Right Knee: Pain Intensity: 7 Transfer of Care Handoff Completed per policy Notes Mental Status: alert / awake / arousable and participated in evaluation Patient Amnestic to Procedure: Yes Nausea / Vomiting: adequately controlled Pain: adequately controlled Airway Patency, RR, SpO2: stable & adequate BP & HR: stable & adequate Hydration State: stable & adequate Anesthetic Complications: no major complications apparent and Pt Satisfied with anesthetic care
[2025-01-08] MEDS ORDERED: NALOXONE HCL 0.4 MG/1 ML VIAL/CARP IV PRN (10:29)
[2025-01-08] MEDS ORDERED: METOCLOPRAMIDE HCL INJ 5 MG/ML 2 ML VIAL IV PRN (10:29)
[2025-01-08] MEDS ORDERED: bisacodyL 10 MG SUPP PR PRN (10:29)
[2025-01-08] MEDS ORDERED: MAGNESIUM HYDROXIDE SUSP 30 ML UDC PO PRN (10:29)
[2025-01-08] MEDS: FOLIC ACID 1 MG TAB PO SCH (10:56)
[2025-01-08] MEDS: ATORVASTATIN 40 MG TAB PO SCH (10:56)
[2025-01-08] MEDS: LOSARTAN POTASSIUM 25 MG TAB PO SCH (10:57)
[2025-01-08] MEDS: POLYETHYLENE (MIRALAX) 17 GM PACK PO SCH (10:57)
[2025-01-08] MEDS: PANTOprazole 40 MG TAB PO SCH (10:57)
[2025-01-08] MEDS: ARIPiprazole 10 MG TAB PO SCH (12:13)
[2025-01-08] MEDS: SERTRALINE HCL 50 MG TABLET PO SCH (12:14)
[2025-01-08] MEDS: KETOROLAC TROMETHAMINE 15 MG/ML VIAL IV SCH (12:16)
[2025-01-08] MEDS: ceFAZolin 1000MG 1,000 MG/7.5 ML SYR IV SCH (16:20)
--- NOTE | 2025-01-08 16:41 | Hospitalist Progress Note ---
Date of Service January 08, 2025 Assessment & Plan (1) Osteoarthritis of right hip: Plan per previous hospitalist notes with addendum: Right hip pain affecting activities of daily living Right hip osteoarthritis x severe Per signout from [facility], patient has a plan for surgery under Dr. Tao on 01/08 for right hip. Patient admitted for her surgery tomorrow. Continue with pain management, bowel regimen, nausea control. PT/OT and chemo DVT prophylaxis once cleared per orthopedic surgery. RCRI 3.9% of major cardiac event. 01/08 stable overall after surgery Monitor labs PT OT evaluation Pain control DVT prophylaxis per Ortho Later on RN was able to get hold of her friend who states in addition to already ordered home medications, pt takes atorvastatin 40 Mg daily, benztropine 0.5 Mg in the p.m., Lovenox 40 Mg daily, folic acid 1 Mg daily, aripiprazole 10 Mg daily. She also stated that patient's sertraline has recently been increased to 150 Mg daily. Will hold lovenox now given possible Sx rafael. Ortho Sx has been sent TT about patient. - Other chronic medical conditions: Continue with/resume home meds as and when able HLD, her outpatient chart states that she is not taking atorvastatin. COPD: Stable, continue as needed inhalers. GERD: Continue PPI Vitamin D deficiency: Continue supplement. Psychiatric illness [delusional disorder, bipolar 1 disorder, GUERITA]: Continue home psychiatric medications. DVT prophylaxis: SCDs for now Full code Admission and Anticipated Discharge Date Admission Date: January 07, 2025 Subjective Follow-up for right hip arthroplasty, etc. Resting in bed, sitting up, on 2 L Alert, oriented, answering questions appropriately In good spirits feels fine overall Denies hip pain No shortness of breath, chest pain, palpitations, dizziness No other new symptoms Review of Systems Review of Systems: all noted and negative except for above Physical Exam Physical Exam: General- oriented x1-2 right hip: Dressing placed, not in distress, speaks in sentences with no effort or accessory muscle use Eyes- anicteric Neck- no JVD Lungs- clear breath sounds bilaterally, no rales/wheezes Heart- normal rate, regular rhythm; no murmurs Abdomen- normal bowel sounds, nondistended, soft, nontender Extremities- no pretibial edema, no calf tenderness Right hip: Dressing in place, no bleeding or discharge Neuro- alert, oriented x 3; no gross focal neurologic deficits Skin- warm & dry Results & Data Results & Data Vital Signs (Past 12 Hours) Vital Signs Temp Pulse Pulse Resp BP BP Pulse Ox 01/08/25 13:10 36.9 C 83 18 146/73 H 96 01/08/25 12:10 36.9 C 87 18 139/70 94 01/08/25 11:11 36.4 C L 85 16 134/67 94 01/08/25 10:40 36.6 C 83 18 114/67 93 01/08/25 10:15 01/08/25 10:10 36.5 C 95 H 18 129/71 96 01/08/25 10:00 94 H 16 133/85 95 01/08/25 09:50 36.6 C 96 H 17 120/80 94 01/08/25 09:40 93 H 15 120/84 93 01/08/25 09:30 94 H 17 143/74 H 93 01/08/25 09:20 99 H 18 140/72 95 01/08/25 09:10 98 H 20 160/78 H 95 01/08/25 09:00 101 H 18 176/75 H 99 01/08/25 08:50 36.6 C 104 H 18 170/78 H 98 01/08/25 06:22 36.8 C 88 18 145/83 H 95 O2 Del Method O2 Flow Rate 01/08/25 13:10 Nasal Cannula 2 01/08/25 12:10 Room Air 01/08/25 11:11 Nasal Cannula 2 01/08/25 10:40 Nasal Cannula 2 01/08/25 10:15 Nasal Cannula 2 01/08/25 10:10 Nasal Cannula 2 01/08/25 10:00 Nasal Cannula 2 01/08/25 09:50 Nasal Cannula 2 01/08/25 09:40 Oxymask 2 01/08/25 09:30 Oxymask 2 01/08/25 09:20 Oxymask 4 01/08/25 09:10 Oxymask 4 01/08/25 09:00 Oxymask 10 01/08/25 08:50 Oxymask 10 01/08/25 06:22 Room Air all noted and reviewed including below
[2025-01-08] MEDS: ASPIRIN 81 MG ECTAB PO SCH (20:17)
[2025-01-08] MEDS: SENNA 8.6 MG TAB PO SCH (20:19)
[2025-01-08] MEDS: DOCUSATE SODIUM 100 MG CAP PO SCH (20:19)
[2025-01-09] MEDS: dexAMETHasone 4 MG TAB PO SCH (07:43)
[2025-01-09] MEDS: MULTIVITAMIN TAB PO SCH (07:44)
[2025-01-09] MEDS: oxyCODONE HCL IR 5 MG TAB (IMMEDIATE RELEASE) PO PRN (08:38)
--- NOTE | 2025-01-09 09:37 | Orthopedic Progress Note ---
Date of Service January 09, 2025 Assessment & Plan (1) Status post right hip replacement: Assessment: Right anterior total hip arthroplasty. Plan: 1. DVT prophylaxis w/ ASA 81 mg twice daily. 2. Awaiting PT/OT evaluation and recommendations. Weightbearing as tolerated to the right lower extremity. 3. Pain well-controlled continue current regimen. 4. Medical management as per the primary medicine service. 5. Continue rest, ice and elevation. Keep splint/dressing clean and dry. Silverlon dressing should remain in place for 7 days. After 7 days, she may discontinue the dressing. 6. Patient okay for discharge from orthopedic standpoint following evaluation and recommendations from PT/OT. 7. Follow-up outpatient in orthopedic office within 2-3 weeks. 8. Recommendation is for discharge on aspirin 81 mg twice a day for 6 weeks. Cefadroxil 500 mg twice a day for 10 days. Pain control per primary. Subjective . Laura was seen today resting comfortably in no apparent distress. She notes that her pain is well-controlled to the right hip. She has not been up and out of bed at this point in time. She has not yet worked with physical therapy today. She denies any concerns or surgical incision site. She denies any active bleeding, discharge, or signs of infection. She denies any other concerns today. Review of Systems All systems reviewed & are unremarkable except as noted in HPI & below. Physical Exam . On physical examination of the right hip, the dressing is in place, clean, dry, intact with no signs of active bleeding, discharge, or signs infection. Her leg is out in full extension. Limited range of motion and strength secondary to postoperative stiffness soreness. Intact plantarflexion and dorsiflexion of the right ankle. +2 DP and PT pulse. Less than 2-second capillary refill. Normal sensation. Neurovascular intact. Results & Data Results & Data Laboratory Results . Diagnostic Findings . Hip/Pelvis X-Ray 01/08/25 09:04 XR hip 1V RT w pelvis CLINICAL HISTORY: IN PACU - Post Surgical COMPARISON: None FINDINGS: Right hip prosthesis shows no hardware complication. No fracture or dislocation. There is expected soft tissue gas. Skin galo are present. IMPRESSION: Unremarkable postoperative exam. ACT 112: Negative or not required by law. Electronically signed by: Santo Gonzalez M.D. 01/08/2025 9:35 AM PG Care Time/CCT Total # of Minutes Spent Total Time Spent with Patient: Total time spent is greater than 50% in coordination of care (as documented) at patient's floor/unit and/or counseling patient: Coding Level of Care Code 29583 Post Operative Follow-Up Diagnoses Status post right hip replacement Z96.641
--- NOTE | 2025-01-09 14:35 | Hospitalist Progress Note ---
Date of Service January 09, 2025 Assessment & Plan (1) Osteoarthritis of right hip: Plan per previous hospitalist notes with addendum: Right hip pain affecting activities of daily living Right hip osteoarthritis x severe Per signout from [facility], patient has a plan for surgery under Dr. Tao on 01/08 for right hip. Patient admitted for her surgery tomorrow. Continue with pain management, bowel regimen, nausea control. PT/OT and chemo DVT prophylaxis once cleared per orthopedic surgery. RCRI 3.9% of major cardiac event. Later on RN was able to get hold of her friend who states in addition to already ordered home medications, pt takes atorvastatin 40 Mg daily, benztropine 0.5 Mg in the p.m., Lovenox 40 Mg daily, folic acid 1 Mg daily, aripiprazole 10 Mg daily. She also stated that patient's sertraline has recently been increased to 150 Mg daily. Will hold lovenox now given possible Sx rafael. Ortho Sx has been sent TT about patient. 01/09 stable overall after surgery Monitor labs PT OT evaluation Pain control DVT prophylaxis per Ortho Other chronic medical conditions: Continue with/resume home meds as and when able HLD, her outpatient chart states that she is not taking atorvastatin. COPD: Stable, continue as needed inhalers. GERD: Continue PPI Vitamin D deficiency: Continue supplement. Psychiatric illness [delusional disorder, bipolar 1 disorder, GUERITA]: Continue home psychiatric medications. DVT prophylaxis: SCDs for now Full code Disposition pending Transition to acute inpatient Admission and Anticipated Discharge Date Admission Date: January 07, 2025 Subjective follow-up for status post right hip Arthroplasty, etc. Seen resting in bedside chair, awake and alert, comfortable, good spirits States she feels fine overall Minimal right hip discomfort Denies chest pain, shortness of breath, palpitations, dizziness, nausea No other new symptoms Review of Systems Review of Systems: all noted and negative except for above Physical Exam Physical Exam: General- oriented x 3, not in distress, speaks in sentences with no effort or accessory muscle use Eyes- anicteric Neck- no JVD Lungs- clear breath sounds bilaterally, no rales/wheezes Heart- normal rate, regular rhythm; no murmurs Abdomen- normal bowel sounds, nondistended, soft, nontender Extremities- no pretibial edema, no calf tenderness Neuro- alert, oriented x 3; no gross focal neurologic deficits Skin- warm & dry Results & Data Results & Data Vital Signs (Past 12 Hours) Vital Signs Temp Pulse Resp BP BP Pulse Ox O2 Del Method 01/09/25 11:17 36.7 C 91 H 16 110/65 95 Room Air 01/09/25 08:27 36.6 C 94 H 16 116/70 98 Nasal Cannula 01/09/25 07:45 Room Air 01/09/25 03:00 36.8 C 86 18 118/70 99 Nasal Cannula O2 Flow Rate 01/09/25 11:17 01/09/25 08:27 2 01/09/25 07:45 01/09/25 03:00 2 all noted and reviewed including below
[2025-01-09 15:20] LABS: Hematocrit (blood only) 33.9 % (37.0-47.0); Hemoglobin 10.8 g/dl (12.0-16.0); Mean Corpuscular Hemoglobin 28.8 pg (25.0-34.0); Mean Corpuscular Hgb Conc 31.9 g/dL (32.0-36.0); Mean Corpuscular Volume 90.4 fL (80.0-100.0); Mean Platelet Volume 9.3 fL (9.4-12.4); Platelet Count 336 K/uL (130-400); RDW Coefficient of Variation 14.3 % (11.5-14.5); Red Blood Count 3.75 M/uL (4.20-5.40); White Blood Count 14.24 K/ul (4.8-10.8)
[2025-01-09 15:44] LABS: Calcium 9.4 mg/dl (8.6-10.3); Potassium 4.3 mmol/L (3.5-5.1)
[2025-01-09 15:45] LABS: Basophils # (auto) 0.01 K/uL (0.00-0.20); Basophils % (auto) 0.1 %; Immature Granulocytes # (auto) 0.09 K/uL (0.01-0.20); Immature Granulocytes % (auto) 0.6 %; Lymphocytes # (auto) 0.71 K/uL (1.20-3.40); Monocytes # (auto) 0.44 K/uL (0.11-0.59); Monocytes % (auto) 3.1 %; Neutrophils # (auto) 12.99 K/uL (1.40-6.50); Neutrophils % (auto) 91.2 %; Polychromasia 1+; Toxic Granulation 1+
[2025-01-09 15:50] LABS: BUN Creatinine Ratio 22.7 (10-20); Creatinine Clr Calc Pharmacy 46.3 ml/min
[2025-01-10 07:20] LABS: Basophils # (auto) 0.03 K/uL (0.00-0.20); Basophils % (auto) 0.2 %; Eosinophils # (auto) 0.06 K/uL (0.00-0.50); Eosinophils % (auto) 0.5 %; Hematocrit (blood only) 33.1 % (37.0-47.0); Hemoglobin 10.6 g/dl (12.0-16.0); Immature Granulocytes # (auto) 0.07 K/uL (0.01-0.20); Immature Granulocytes % (auto) 0.6 %; Lymphocytes # (auto) 3.13 K/uL (1.20-3.40); Lymphocytes % (auto) 25.7 %; Mean Corpuscular Hemoglobin 28.7 pg (25.0-34.0); Mean Corpuscular Volume 89.7 fL (80.0-100.0); Mean Platelet Volume 9.3 fL (9.4-12.4); Monocytes # (auto) 1.14 K/uL (0.11-0.59); Monocytes % (auto) 9.4 %; Neutrophils # (auto) 7.74 K/uL (1.40-6.50); Neutrophils % (auto) 63.6 %; Platelet Count 330 K/uL (130-400); RDW Coefficient of Variation 14.2 % (11.5-14.5); Red Blood Count 3.69 M/uL (4.20-5.40); White Blood Count 12.17 K/ul (4.8-10.8)
[2025-01-10 07:29] LABS: BUN Creatinine Ratio 26.9 (10-20); Calcium 9.1 mg/dl (8.6-10.3); Creatinine Clr Calc Pharmacy 60.8 ml/min; Potassium 4.1 mmol/L (3.5-5.1)
[2025-01-10 07:54] VITALS: BP 138/50; PULSE 92; RESP 17; TEMP 98.8; O2SAT 92
--- NOTE | 2025-01-10 10:21 | Orthopedic Progress Note ---
Date of Service January 10, 2025 Assessment & Plan (1) Status post right hip replacement: 69-year-old woman POD# 2 s/p right anterior total hip replacement, doing well overall. Admitting to severe pain today. Prosthetic hip is located. She is neurologically intact. Plan: 1. DVT prophylaxis w/ thigh-high TEDs, SCDs, ASA 81 mg BID. 2. Continue PT/OT as tolerated. WBAT on R LE. Right anterior approach total hip precautions/protocol. 3. Added oral acetaminophen and IV Toradol to attempt better pain control. 4. Silverlon dressing should remain in place for 7 days. After 7 days, she may discontinue the dressing. 5. Disposition -case management states patient has been accepted to [facility], and there is plan to transport the patient there today. Patient okay for discharge from orthopedic standpoint. 6. F/u 2 to 3 weeks postop for first post-op visit. 7. Recommendation is for discharge on aspirin 81 mg twice a day for 6 weeks. Cefadroxil 500 mg twice a day for 10 days. Pain control per primary. Subjective Patient is POD# 2 s/p right total hip arthroplasty by Dr. Tao on 01/08/2025. Patient says her pain is quite significant this morning, rating it a 9/10. Of note, she does not appear to be in this degree of pain. Denies CP, SOB, N/V, RLE paresthesia. She states that case management is working on trying to get her to [facility] in [place]. Review of Systems All systems reviewed & are unremarkable except as noted in HPI & below. Physical Exam GENERAL: AA&Ox3, NAD. Pleasant, affect is calm. Sitting in bedside chair and appears relatively comfortable, but does rate pain a 9/10. RESPIRATORY: Normal respiratory effort with no signs of distress. CHEST/AXILLA: Chest movement symmetrical. No deformities noted. CARDIOVASCULAR: No edema noted. SKIN: Armour, warm and dry. MS/EXTREMITY: Anterior hip Silverlon dressing intact with some underlying stable saturation noted. STEPHY hose donned. Thigh is soft, supple. Leg lengths are equal. + ankle dorsi/plantarflexion. NVI distally. Calf soft/NT. PT/DP pulses intact, 2+. Results & Data Results & Data Laboratory Results . Diagnostic Findings . PG Care Time/CCT Total # of Minutes Spent Total Time Spent with Patient: Total time spent is greater than 50% in coordination of care (as documented) at patient's floor/unit and/or counseling patient: [place] [address] Post Operative Follow-Up Patient Type Established History Problem Focused Exam Problem Focused Medical Decision Making Straight Forward Diagnoses Status post right hip replacement Z96.641
[2025-01-10] MEDS ORDERED: ACETAMINOPHEN 500 MG TAB PO SCH (10:30)
[2025-01-10] MEDS ORDERED: KETOROLAC TROMETHAMINE 15 MG/ML VIAL IV SCH (10:30)
--- NOTE | 2025-01-10 16:13 | Hospitalist Progress Note ---
Date of Service January 10, 2025 Assessment & Plan (1) Osteoarthritis of right hip: Plan per previous hospitalist notes with addendum: Right hip pain affecting activities of daily living Right hip osteoarthritis x severe -Hgb and creatinine stable at this time -medically stable for discharge once ortho ready Other chronic medical conditions: Continue with/resume home meds as and when able HLD, her outpatient chart states that she is not taking atorvastatin. COPD: Stable, continue as needed inhalers. GERD: Continue PPI Vitamin D deficiency: Continue supplement. Psychiatric illness [delusional disorder, bipolar 1 disorder, GUERITA]: Continue home psychiatric medications. I spent a total of 30 minutes in direct patient care, including [id number] time with the patient and/or family, reviewing medical records, ordering and reviewing diagnostic tests, and coordinating care with other healthcare providers. This time includes: history taking, physical examination, medical decision making, counseling, ECG interpretation, imaging interpretation, lab interpretation, orders, and education, excluding time spent in the performance of separately billed services. Admission and Anticipated Discharge Date Admission Date: January 07, 2025 Subjective Patient discharged before this provider saw patient. Review of Systems Review of Systems: -not seen in person Physical Exam Physical Exam: -not seen in person Results & Data Results & Data Vital Signs (Past 12 Hours) Vital Signs Temp Pulse Resp BP Pulse Ox O2 Del Method 01/10/25 07:49 37.1 C 92 H 17 138/50 L 92 Room Air Laboratory Results -personally reviewed, Hgb stabilized at 10.6, leukocytosis is likely reactive and is downtrending
== END 2025-01-10 10:35 | DRG 470 ==
LOC: 3E 15:03 → SUATTDRO 15:03

== ENCOUNTER 2025-05-11 07:30 | Inpatient (IN) ==
--- NOTE | 2024-12-08 10:22 | PAT Medication Instructions ---
Medication Instructions Date of Service December 08, 2024 Home Medications Medication Instructions Recorded celecoxib 100 mg capsule (Celebrex) 100 mg PO BID PRN pain #60 caps 11/08/24 aripiprazole 10 mg tablet 10 mg PO QAM atorvastatin 10 mg tablet (Lipitor) 10 mg PO QAM celecoxib 100 mg capsule (Celebrex) 100 mg PO BID PRN pain fluoxetine 40 mg capsule (Prozac) 40 mg PO QAM lamotrigine 100 mg tablet 100 mg PO QPM losartan 25 mg tablet 25 mg PO QAM ropinirole 0.25 mg tablet 0.25 mg PO QPM sertraline 100 mg tablet 100 mg PO QAM ASK your surgeon for instructions celecoxib 100 mg capsule (Celebrex) 100 mg PO BID PRN pain DO NOT take the morning of surgery losartan 25 mg tablet 25 mg PO QAM Take morning of surgery With a small sip of water, OTHERWISE NOTHING TO EAT OR DRINK AFTER MIDNIGHT: aripiprazole 10 mg tablet 10 mg PO QAM atorvastatin 10 mg tablet (Lipitor) 10 mg PO QAM fluoxetine 40 mg capsule (Prozac) 40 mg PO QAM sertraline 100 mg tablet 100 mg PO QAM Take evening before surgery lamotrigine 100 mg tablet 100 mg PO QPM ropinirole 0.25 mg tablet 0.25 mg PO QPM Other Notes If you have any questions please call us at [phone] or [phone] or [phone] or [phone]
--- NOTE | 2024-12-14 12:03 | Anesthesiology Consultation ---
Date of Service December 14, 2024 Assessment & Plan (1) Encounter for pre-operative examination: - Outpatient joint assessment: Patient is currently scheduled for inpatient pathway. If re-evaluated and patient/surgeon requests outpatient pathway, patient is not advised candidate for outpatient joint program from anesthesia standpoint. Chart Review Chart Review: Acceptable Risk for Surgery and Patient seen in Pre Admission Testing Teaching & Discussion Pre-Anesthesia Teaching/Discussion Notes: Instructed NPO after midnight before surgery, except medications with 15 cc of water. Medication instructions provid ed according to the PAT guidelines. History Surgery Operation Date: 01/08/25 12:00 Proposed Procedures p Right Total Hip Arthroplasty Anterior - Parker Tao, DO Height/Weight Height: 4 ft 8 in Weight: 68 kg Allergies Allergy/AdvReac Type Severity Reaction Status Date / Time No Known Allergies Allergy Verified 12/08/24 07:38 Medications Home Medications Medication Instructions Recorded Confirmed Last Taken aripiprazole 10 mg tablet 10 mg PO QAM 11/08/24 12/08/24 Unknown atorvastatin 10 mg tablet (Lipitor) 10 mg PO QAM 11/08/24 12/08/24 Unknown celecoxib 100 mg capsule (Celebrex) 100 mg PO BID PRN pain #60 caps 11/08/24 12/08/24 Unknown fluoxetine 40 mg capsule (Prozac) 40 mg PO QAM 11/08/24 12/08/24 Unknown lamotrigine 100 mg tablet 100 mg PO QPM 12/08/24 12/08/24 Unknown losartan 25 mg tablet 25 mg PO QAM 12/08/24 12/08/24 Unknown ropinirole 0.25 mg tablet 0.25 mg PO QPM 12/08/24 12/08/24 Unknown sertraline 100 mg tablet 100 mg PO QAM 12/08/24 12/08/24 Unknown tramadol 50 mg tablet 50 mg PO Q8H PRN pain #30 tabs 12/14/24 12/14/24 Unknown Past Medical History Medical History Acid reflux controlled, stable per pt Depression Dyslipidemia History of COVID-19 (2020) no hosp; resolved HTN (hypertension) controlled, stable per pt Osteoarthritis Poor historian Schizophrenia Patient denies h/o stroke, seizures, heart attack, heart failure, DM, blood clots/DVTs or blood transfusions. Exercise / Class Metabolic Activity III < 4 Walking/Shop/Light housework (denies chest discomfort or shortness of breath with usual activities) Past Surgical History Surgical History History of arthroplasty of both shoulders History of partial knee replacement right Hx of bilateral cataract extraction Hx of cholecystectomy Hx of hysterectomy Past Anesthesia History No Hx of Anesthesia Complications and No Family Hx of Anesthesia Complications History of PONV No Hx of PONV and No Hx of Motion Sickness Social History Smoking Status: Current every day smoker (-advised) Smoking cigarettes per day: VAPES DAILY- DAILY Do You Dip or Chew Tobacco: No Smoking End Date: hx cigarette smoking Hx Alcohol Use: Yes Alcohol type: beer alcohol intake frequency: a few times a month Hx Substance Use: No substance use type: does not use Review of Systems Patient denies chest pain, shortness of breath, dyspnea on exertion, snoring, witnessed apneas, fever, chills, cough, wheezing, or palpitations. Physical Exam Vital Signs Vitals BP 120/77 P 92 TEMP 98.7 SP02 94% on RA RESP 19 Physical Patient resting comfortably in chair in no acute distress, alert and oriented, responding appropriately throughout visit Full cervical extension range of motion without pain TMD 3.5 finger breadths Mallampati Score 2 Dentition: one crown, denies chipped or loose teeth, caps, implants or bridges Lungs: normal respiratory effort. Good air movement, clear throughout to auscultation, no adventitious breath sounds Cardiac: regular rate and rhythm, no murmurs noted Carotid arteries: negative bruit bilat Lab Results Anesthesia Preop Results Results Anesthesia Widget: WBC 9.02 K/ul (4.8-10.8) 12/14/24 Hgb 12.4 g/dl (12.0-16.0) 12/14/24 Hct 39.8 % (37.0-47.0) 12/14/24 Plt 302 K/uL (130-400) 12/14/24 Na 141 mmol/L (136-145) 12/14/24 K 3.9 mmol/L (3.5-5.1) 12/14/24 Cl 106 mmol/L (98-107) 12/14/24 CO2 30 mmol/L (21-32) 12/14/24 BUN 10 mg/dl (6-23) 12/14/24 Creat 0.68 mg/dl (0.6-1.2) 12/14/24 Glucose Level 106 mg/dl (70-99(Fasting)) H 12/14/24 PT 10.7 Seconds (9.0-12.0) 12/14/24 PTT 26 Seconds (21-31) 12/14/24 INR 1.0 (0.9-1.1) 12/14/24 Blood Type A Positive 12/14/24 Antibody Screen NEGATIVE 12/14/24 Testing Electrocardiogram Date: 11/07/24 NSR, rate 83 bpm Low voltage QRS, consider pulmonary disease, pericardial effusion or normal variant Nonspecific ST abnormality Chest X-Ray Date: 11/07/24 *1 view* No active disease. Echocardiogram Date: 04/11/20 EF 55-59% "no clear cut wall motion abnormality" No significant valvular disease Grade I diastolic dysfunction
--- NOTE | 2025-01-08 09:11 | Fluoroscopy Report ---
FL hip RT 1V CLINICAL HISTORY: RT ANTEIROR HIP COMPARISON STUDY: None FLUOROSCOPY TIME: 14 seconds FLUOROSCOPY IMAGES: 1 EXPOSURE DOSE: 1.7 mGy FINDINGS: Fluoroscopy was provided for right hip prosthesis. IMPRESSION: ACT 112: Negative or not required by law. Electronically signed by: Santo Gonzalez M.D. 01/08/2025 9:10 AM
--- NOTE | 2025-05-07 09:13 | Anesthesiology Consultation ---
Date of Service May 07, 2025 Assessment & Plan (1) Encounter for pre-operative examination: - s/p right VAISHNAVI Grade 1 view, MAC 3, ETT 7. - Outpatient joint assessment: Patient is currently scheduled for inpatient pathway. If re-evaluated and patient/surgeon requests outpatient pathway, patient is not advised candidate for outpatient joint program. - Per assessment consultant on 05/07/25: No known infectious disease contacts, current infectious disease symptoms in past 10 days or COVID positive test result in the past 30 days. Chart Review Chart Review: Acceptable Risk for Surgery and Patient NOT seen in Pre Admission Testing History Surgery Operation Date: 05/11/25 10:00 Proposed Procedures p Right Revision Unicompartment Knee Arthroplasty to Right Total Knee Arthroplastywith Removal Plate and Screws - Parker Tao DO Height/Weight Height: 5 ft Weight: 105.233 kg Allergies Allergy/AdvReac Type Severity Reaction Status Date / Time No Known Allergies Allergy Verified 05/07/25 08:34 Medications Home Medications Medication Instructions Recorded Confirmed Last Taken aripiprazole 10 mg tablet 10 mg PO QAM 11/08/24 05/07/25 01/07/25 atorvastatin 10 mg tablet (Lipitor) 40 mg PO QAM 11/08/24 05/07/25 01/07/25 09:24 lamotrigine 100 mg tablet 100 mg PO QPM 12/08/24 05/07/25 01/07/25 losartan 25 mg tablet 25 mg PO QAM 12/08/24 05/07/25 01/07/25 16:23 ropinirole 0.25 mg tablet 0.5 mg PO TID 12/08/24 05/07/25 Unknown sertraline 100 mg tablet 150 mg PO QAM 12/08/24 05/07/25 01/07/25 16:22 benztropine 0.5 mg tablet 0.5 mg PO HS #30 tabs 01/10/25 05/07/25 Unknown polyethylene glycol 3350 17 gram 17 g PO DAILY PRN constipation #14 01/10/25 05/07/25 Unknown oral powder packet (Miralax) ea oxycodone 5 mg tablet 5 mg PO Q6H PRN pain #30 tabs 04/17/25 05/07/25 Unknown atomoxetine 40 mg capsule 40 mg PO QPM 05/07/25 05/07/25 Unknown gabapentin 100 mg capsule 100 mg PO TID PRN Pain 05/07/25 05/07/25 Unknown hydroxyzine HCl 25 mg tablet 25 mg PO BID PRN Anxiety 05/07/25 05/07/25 Unknown omeprazole 40 mg capsule,delayed 40 mg PO QAM 05/07/25 05/07/25 Unknown release quetiapine 50 mg tablet,extended 50 mg PO PM 05/07/25 05/07/25 Unknown release 24 hr Past Medical History Medical History Acid reflux Depression Dyslipidemia History of COVID-19 (2020) no hosp; resolved History of stroke no deficits, per air and water filler, ~ 2005 HTN (hypertension) controlled, stable per pt Hypertension Osteoarthritis Poor historian sami escobedo completed call - also poor historian Schizophrenia Past Surgical History Surgical History (Updated 05/07/25 @ 09:09 by Yessenia Salas PA-C) History of arthroplasty of both shoulders History of partial knee replacement right Hx of bilateral cataract extraction Hx of cholecystectomy Hx of hysterectomy Status post right hip replacement (12/2024) air and water filler reports pt. had infection post op and was in a rehab facility, now clear Social History Smoking Status: Former smoker Smoking cigarettes per day: VAPES DAILY- DAILY Do You Dip or Chew Tobacco: No Smoking End Date: ~ 10 years ? Hx Alcohol Use: Yes Alcohol type: beer alcohol intake frequency: a few times a week Alcohol Intake Frequency Comment: 3-4 months- quit- heavy drinker in past Hx Substance Use: No substance use type: does not use Lab Results Anesthesia Preop Results Results Anesthesia Widget: WBC 7.70 K/ul (4.8-10.8) 04/03/25 Hgb 12.4 g/dl (12.0-16.0) 04/03/25 Hct 39.2 % (37.0-47.0) 04/03/25 Plt 318 K/uL (130-400) 04/03/25 Na 135 mmol/L (136-145) L 04/03/25 K 4.5 mmol/L (3.5-5.1) 04/03/25 Cl 99 mmol/L (98-107) 04/03/25 CO2 28 mmol/L (21-32) 04/03/25 BUN 11 mg/dl (6-23) 04/03/25 Creat 0.71 mg/dl (0.6-1.2) 04/03/25 Glucose Level 91 mg/dl (70-99(Fasting)) 04/03/25 PT 10.7 Seconds (9.0-12.0) 04/03/25 PTT 27 Seconds (21-31) 04/03/25 INR 1.0 (0.9-1.1) 04/03/25 Blood Type A Positive 04/03/25 Antibody Screen NEGATIVE 04/03/25 Testing Electrocardiogram Date: 11/07/24 NSR, rate 83 bpm Low voltage QRS, consider pulmonary disease, pericardial effusion or normal variant Nonspecific ST abnormality Chest X-Ray Date: 11/07/24 *1 view* No active disease. Echocardiogram Date: 04/11/20 EF 55-59% "no clear cut wall motion abnormality" No significant valvular disease Grade I diastolic dysfunction Cervical Spine Date: 01/02/25 No acute cervical spine pathology C4-7 degenerative disc disease with disc space narrowing and osteophyte formation
--- NOTE | 2025-05-09 16:25 | History & Physical Report ---
Date of Service May 09, 2025 Assessment & Plan (1) Right knee DJD: We will proceed with the removal of hardware and conversion to a right total knee arthroplasty. Postoperatively, she will be started on aspirin for DVT prophylaxis and kept overnight in the hospital for postop medical management. She plans to go to rehab after discharge. History of Present Illness Chief Complaint: Chronic worsening right knee pain. Primary Care Provider: NO PCP Laura is a pleasant 69-year-old female recently underwent a hip replacement. Unfortunately she is now dealing with significant knee pain. She had a right partial knee replacement done by Dr. Corrales in [place] 25 years ago. She also had a lateral plate put on her proximal tibia. She is not sure who or when that happened. Unfortunately she has developed advanced arthritis of her right knee. After failing extensive conservative treatment, she has elected to proceed with a conversion to a right total knee arthroplasty.. Allergies Allergy/AdvReac Type Severity Reaction Status Date / Time No Known Allergies Allergy Verified 05/07/25 08:34 Home Medications Medication Instructions Recorded Confirmed Type aripiprazole 10 mg tablet 10 mg PO QAM 11/08/24 05/07/25 History atorvastatin 10 mg tablet (Lipitor) 40 mg PO QAM 11/08/24 05/07/25 History lamotrigine 100 mg tablet 100 mg PO QPM 12/08/24 05/07/25 History losartan 25 mg tablet 25 mg PO QAM 12/08/24 05/07/25 History ropinirole 0.25 mg tablet 0.5 mg PO TID 12/08/24 05/07/25 History sertraline 100 mg tablet 150 mg PO QAM 12/08/24 05/07/25 History benztropine 0.5 mg tablet 0.5 mg PO HS #30 tabs 01/10/25 05/07/25 Rx polyethylene glycol 3350 17 gram 17 g PO DAILY PRN constipation #14 01/10/25 05/07/25 Rx oral powder packet (Miralax) ea oxycodone 5 mg tablet 5 mg PO Q6H PRN pain #30 tabs 04/17/25 05/07/25 Rx atomoxetine 40 mg capsule 40 mg PO QPM 05/07/25 05/07/25 History gabapentin 100 mg capsule 100 mg PO TID PRN Pain 05/07/25 05/07/25 History hydroxyzine HCl 25 mg tablet 25 mg PO BID PRN Anxiety 05/07/25 05/07/25 History omeprazole 40 mg capsule,delayed 40 mg PO QAM 05/07/25 05/07/25 History release quetiapine 50 mg tablet,extended 50 mg PO PM 05/07/25 05/07/25 History release 24 hr Past Med/Surg History Problem List Osteoarthritis of right hip Instability of internal right knee prosthesis, initial encounter Medical History History of stroke no deficits, per vice president of procurement, ~ 2005 Hypertension Osteoarthritis Acid reflux Poor historian sami escobedo completed call - also poor historian Depression Schizophrenia History of COVID-19 (2020) no hosp; resolved HTN (hypertension) controlled, stable per pt Dyslipidemia Surgical History Status post right hip replacement (12/2024) vice president of procurement reports pt. had infection post op and was in a rehab facility, now clear History of partial knee replacement right Hx of bilateral cataract extraction Hx of cholecystectomy Hx of hysterectomy History of arthroplasty of both shoulders Social History Smoking Status: Former smoker Tobacco Type: E-cigarettes / Vaping Cigarettes Per Day: VAPES DAILY- DAILY; Smoking End Date: ~ 10 years ?; Second Hand Exposure: No; Do You Dip or Chew Tobacco: No; Tobacco Cessation Education Requested by Patient: No Hx Alcohol Use: Yes Alcohol type: beer Hx Substance Use: No Preferred Language: Citizen Of [place] Communication Ability: Effective [employer] Tm1 Developer Required: No Beliefs That Will Affect Care: None Current Living Situation: Alone Current Living Situation Comment: has a caregiver 7 days per week, 8 hours per day Other Information That Helps Us Care for You: No Feels Safe at Home: Yes Safety Concerns: Feels Safe At This Time Assistive Devices: Glasses, Hearing Aid - Bilateral and Walker Assistive Devices Comment: prn use of walker, cane, wheelchair; prn glasses Review of Systems All systems reviewed & are unremarkable except as noted in HPI & below. Physical Exam On physical exam of the right knee, she walks with antalgic gait. She does have a trace effusion. She is diffuse pain. Good range of motion.. Constitutional WD/WN, vitals as above Eyes PERRL, conjunctivae normal, anicteric sclerae ENMT external ear and nose normal, oropharynx normal Neck trachea midline, no thyromegaly Respiratory normal respiratory effort Cardiovascular RRR, no murmur, no edema Gastrointestinal (Abdomen) normal bowel sounds, soft, nontender, no hepatosplenomegaly Psychiatric A+Ox3, euthymic affect Results & Data Results & Data Laboratory Results . Diagnostic Findings X-rays of the right knee show well-placed right unicompartmental knee arthroplasty and a lateral proximal tibial plate. There is advanced arthritis of the lateral and patellofemoral compartments of the right knee.. PG Care Time/CCT Total # of Minutes Spent Total Time Spent with Patient: Total time spent is greater than 50% in coordination of care (as documented) at patient's floor/unit and/or counseling patient: Coding Level of Care Code None Diagnoses Other secondary osteoarthritis of right knee M17.5 Osteoarthritis type: other secondary (1) Right knee DJD Osteoarthritis type: other secondary Qualified Code(s): M17.5 - Other unilateral secondary osteoarthritis of knee
[~2025-05-11 07:30] MED LIST: ACETAMINOPHEN 500 MG TAB PO SCH; BUPIVACAINE 0.25% PF 30 ML VIAL ONE; BUPIVACAINE 0.5 % 5 MG/1 ML PF 10ML VIAL ONE; DEXAMETHASONE SOD INJ 4 MG/ML VIAL ONE; FAMOTIDINE 20 MG TAB PO SCH; GABAPENTIN 300 MG CAP PO SCH; HYDROmorphone INJ 0.5 MG/0.5 ML SYR ONE; LIDOCAINE 2% 2 ML VIAL/AMP(20MG/ML) INFIL ONE; LR 500ML BOLUS, THEN 15ML/HR IV SCH; LR 60ML/HR IV SCH; MIDAZOLAM HCL 1 MG/ML 2ML VIAL ONE; ONDANSETRON INJ 2 MG/ML 2 ML VIAL ONE; PHENYLEPHRINE HCL 10 MG/ML VIAL ONE; PROPOFOL IV EMULSION 10 MG/ML 20 ML VIAL IV ONE; ROCURONIUM BROMIDE 10 MG/ML 5 ML VIAL IV ONE; ROPIV 0.5% 246mg, Ketorolac 30mg, EPINEPHrine 0.5mg in NSS INFIL SCH; ROPIVACAINE 0.5% 5 MG/ML 30 ML VIAL ONE; SUGAMMADEX SODIUM 200 MG/2 ML VIAL IV ONE; TRANEXAMIC ACID 1,000 MG **IV Pre-op IV SCH; dexAMETHasone**PF** 10 MG/ML VIAL IV SCH
[2025-05-11] MEDS ORDERED: MIDAZOLAM HCL 1 MG/ML 2ML VIAL ONE (07:43)
[2025-05-11] MEDS ORDERED: ONDANSETRON INJ 2 MG/ML 2 ML VIAL ONE (07:44)
[2025-05-11] MEDS ORDERED: PROPOFOL IV EMULSION 10 MG/ML 20 ML VIAL IV ONE ×2 (07:47→10:52)
[2025-05-11] MEDS: LR 500ML BOLUS, THEN 15ML/HR IV SCH (08:18)
[2025-05-11] MEDS ORDERED: ATROPINE SULFATE 0.1 MG/ML 10ML SYR IV PRN (08:29)
[2025-05-11] MEDS ORDERED: ONDANSETRON INJ 2 MG/ML 2 ML VIAL IV PRN ×2 (08:29→15:27)
[2025-05-11] MEDS: GABAPENTIN 300 MG CAP PO SCH (08:47)
[2025-05-11] MEDS: ACETAMINOPHEN 500 MG TAB PO SCH ×2 (08:47→15:51)
[2025-05-11] MEDS: dexAMETHasone**PF** 10 MG/ML VIAL IV SCH (08:47)
[2025-05-11] MEDS: LR 60ML/HR IV SCH (08:47)
[2025-05-11] MEDS: FAMOTIDINE 20 MG TAB PO SCH (08:47)
[2025-05-11] MEDS: TRANEXAMIC ACID 1,000 MG **IV Pre-op IV SCH (09:02)
--- NOTE | 2025-05-11 09:23 | History & Physical Bridge Note ---
Date of Service May 11, 2025 History & Physical Bridge Note I have examined the patient, reviewed the History & Physical and in the interval since the performance of the History & Physical I have noted the following changes of clinical significance: no changes noted
[2025-05-11] MEDS ORDERED: ePHEDrine sulfate 50 MG/5 ML SYR ONE (09:56)
[2025-05-11] MEDS: ORTHO JOINT ANESTHETIC ONE (10:22)
[2025-05-11] MEDS: ROPIV 0.5% 246mg, Ketorolac 30mg, EPINEPHrine 0.5mg in NSS INFIL SCH (10:52)
--- NOTE | 2025-05-11 12:33 | XRay Report ---
XR knee RT 1 or 2V routine CLINICAL HISTORY: Surgical Post Op COMPARISON: None FINDINGS: Right knee prosthesis shows no hardware complication. There is expected soft tissue gas. IMPRESSION: Unremarkable postoperative exam. ACT 112: Negative or not required by law. Electronically signed by: Santo Gonzalez M.D. 05/11/2025 12:32 PM
--- NOTE | 2025-05-11 13:30 | Anesthesiology Progress Note ---
Date of Service May 11, 2025 Anesthesia Post Procedure Vital Signs Vital Signs: Temp Pulse Pulse Resp BP Pulse Ox O2 Del Method 05/11/25 13:00 73 12 120/82 93 Room Air 05/11/25 12:45 75 16 124/61 92 Room Air 05/11/25 12:30 36.4 C L 76 14 146/89 H 96 Room Air 05/11/25 12:20 74 12 159/59 H 95 Room Air 05/11/25 12:10 76 14 153/99 H 95 Room Air 05/11/25 12:00 76 16 135/62 96 Room Air 05/11/25 11:50 75 12 148/75 H 99 Room Air 05/11/25 11:40 76 14 151/77 H 100 Oxymask 05/11/25 11:28 36 C L 76 16 151/86 H 99 Oxymask 05/11/25 08:08 36.6 C 77 20 139/83 94 Room Air O2 Flow Rate 05/11/25 13:00 05/11/25 12:45 05/11/25 12:30 05/11/25 12:20 05/11/25 12:10 05/11/25 12:00 05/11/25 11:50 05/11/25 11:40 6 05/11/25 11:28 6 05/11/25 08:08 Pain Intensity Right Knee: Pain Intensity: 2 Transfer of Care Handoff Completed per policy Notes Mental Status: alert / awake / arousable Patient Amnestic to Procedure: Yes Nausea / Vomiting: adequately controlled Pain: adequately controlled Airway Patency, RR, SpO2: stable & adequate BP & HR: stable & adequate Hydration State: stable & adequate Neuraxial Anesthesia: was administered and sensory block is resolving Anesthetic Complications: no major complications apparent and Pt Satisfied with anesthetic care
[2025-05-11] MEDS ORDERED: METOCLOPRAMIDE HCL INJ 5 MG/ML 2 ML VIAL IV PRN (15:27)
[2025-05-11] MEDS ORDERED: NALOXONE HCL 0.4 MG/1 ML VIAL/CARP IV PRN (15:27)
[2025-05-11] MEDS ORDERED: MAGNESIUM HYDROXIDE SUSP 30 ML UDC PO PRN (15:27)
[2025-05-11] MEDS: SODIUM CHLORIDE 0.9% 1,000 ML IV SCH (15:51)
[2025-05-11] MEDS: KETOROLAC TROMETHAMINE 15 MG/ML VIAL IV SCH (15:51)
--- NOTE | 2025-05-11 17:37 | Operative Report ---
PG Post Operative Report Pre & Post Diagnosis Operation Date: 05/11/25 09:00 Pre-Op Diagnosis: Osteoarthritis of the right knee with failed unicompartmental knee arthroplasty and retained hardware of the lateral tibia. Post-Op Diagnosis: Osteoarthritis of the right knee with failed unicompartmental knee arthroplasty and retained hardware the lateral tibia I identified the patient and participated in the time-out.: Yes Procedure Operation Date: 05/11/25 09:00 Actual Procedures p Robotic Assisted Right Revision Unicompartment Knee Arthroplasty to Right Total Knee Arthroplasty with Removal Plate and Screws hardware from lateral tibia (Right) - Parker Tao DO Surgeon Parker Tao DO Pest Control Worker Helper Luis E Lucero PA-C Estimated Blood Loss 30 Findings Consistent with Post-Op Diagnosis Specimens Right femoral and tibial bone Description of Procedure Implants used: I used a [employer] total knee arthroplasty system with a size 5 standard PS femur, B tibia, 25 oval patella, and a size 16 CPS polyethylene bearing. All components were cemented in place with Biomet cement. Laura arrived [facility] for the above procedure. She was seen in the preoperative holding area and the operative extremity was identified and signed. She was given a preoperative antibiotic, TXA, a spinal anesthetic and an adductor nerve block. She was taken back to the operating room and laid on the table in supine position. She was given basic sedation. The operative knee was then prepped and draped in sterile fashion. A timeout was done, and the patient and the operative extremity was properly identified. The previous midline incision was opened back up. It was taken a little bit more distally than usual to remove the lateral tibial plate. Dissection was taken down to the extensor mechanism. The lateral tibial plate was then exposed. The appropriate screwdrivers were found and the screws were removed from the lateral tibial plate. The tibial plate was then carefully slid out and completely removed. A medial parapatellar arthrotomy was then made. The medial retinaculum was released in the fat pad was excised. The knee was flexed and the ACL, PCL, and meniscus were removed. There was a retained unicompartmental knee arthroplasty. This was left in place for mapping of the robot. The alignment of the knee replacement was assisted with a Mozy robotic knee. The femoral array was pinned in the distal femur and the tibial array was pinned using a percutaneous technique in the upper shaft of the tibia. The robot was appropriately calibrated and the structure of the knee was mapped out. The components were then manipulated on the screen to account for any malali gnment and to assist in gap balancing. Once I was happy with the placement of the components on the screen, a distal femoral cutting guide was brought in place. The distal femur was then resected. The femoral implant from the unicompartmental knee arthroplasty was elevated off with the distal femoral resection. The femur measured to be a size 5. A 4-in-1 cutting block was then put into place by the robot and 2 peg holes were drilled. The 4-in-1 cutting block was then impacted into place and anterior, posterior, and chamfer cuts were made. The cutting block was then brought down to the tibia and pinned into place. The proximal tibia was then resected. The tibial plate from the prior unicompartmental knee arthroplasty was carefully elevated off with the proximal tibial resection. The posterior aspect of the knee was then opened up and any additional meniscus fragments and osteophytes were removed. The tibia measured to be a size B. The tibial plate was then placed in the appropriate rotation and the tibia was drilled and punched. Trial components were then placed. The patella was then everted and 9 mm was resected off the posterior aspect of the patella. The patella measured to be a size 25 oval. 3 peg holes were then drilled. A trial patella was placed. A size 16 CPS polyethylene insert was then trialed. The knee was brought through a full range of motion and felt to be stable. Trial components were then removed. The surrounding soft tissues were injected with 100 cc of an orthopedic pain control cocktail. All components were then cemented into place with Biomet cement. The final polyethylene insert was then snapped into place. Once cement was dry the tourniquet was deflated. Hemostasis was obtained. A dilute betadyne lavage was then done for 3 minutes. The joint was then irrigated with normal saline solution. The medial parapatellar arthrotomy was then closed with #1 Vicryl suture. The skin was closed with 2-0 Vicryl, 3-0V lock suture, and Vik zip line. A soft compressive dressing was placed. She was then transferred to a hospital bed and taken to the postanesthesia care unit in stable condition. She tolerated the procedure well. Luis E Lucero PA-C, was present for the entire procedure. He was critical for patient positioning, prepping, draping, retraction exposure, wound closure and application of sterile dressing. I attest to the content of the Intraoperative Record and any orders documented therein. Any exceptions are noted below.
[2025-05-11] MEDS: SENNA 8.6 MG TAB PO SCH (21:02)
[2025-05-11] MEDS: DOCUSATE SODIUM 100 MG CAP PO SCH (21:02)
[2025-05-11] MEDS: NICOTINE 21 MG/24 HR TDSY TD ONE (21:03)
[2025-05-11] MEDS: lamoTRIgine 100 MG TAB PO SCH (21:03)
[2025-05-11] MEDS: ASPIRIN 81 MG ECTAB PO SCH (21:03)
[2025-05-11] MEDS: BENZTROPINE MESYLATE 0.5 MG TAB PO SCH (21:03)
[2025-05-11] MEDS: ATOMOXETINE HCL 40 MG CAPSULE PO SCH (21:03)
--- NOTE | 2025-05-12 07:49 | Orthopedic Progress Note ---
Date of Service May 12, 2025 Assessment & Plan (1) Status post right knee replacement: Overall she is doing fairly well. She is not having too much pain in the right knee. She will be seen by physical therapy today for ambulation and range of motion exercises. She is on aspirin for DVT prophylaxis. The nursing staff can change her dressing after physical therapy. She lives with a friend and has a lot of stairs at home. She is nervous about going home. She will be seen by case management. She is hoping for placement in a rehab facility. Cori Sanchez was seen and examined at bedside this morning. Overall she is doing okay. She is not having too much pain in the right knee. She has been up and ambulating to the bathroom. She has no complaints.. Review of Systems All systems reviewed & are unremarkable except as noted in HPI & below. Physical Exam On physical exam of the right knee, the dressing is clean and dry. Her leg is out full extension. She has active dorsiflexion plantarflexion of her right ankle.. Results & Data Results & Data Laboratory Results . Diagnostic Findings Postoperative x-rays of the right knee show the prosthesis to be in anatomic alignment without any evidence of fracture complication, or loosening.. PG Care Time/CCT Total # of Minutes Spent Total Time Spent with Patient: Total time spent is greater than 50% in coordination of care (as documented) at patient's floor/unit and/or counseling patient: Coding Level of Care Code 63745 Post Operative Follow-Up Diagnoses Status post right knee replacement Z96.651
[2025-05-12] MEDS: LOSARTAN POTASSIUM 25 MG TAB PO SCH (08:02)
[2025-05-12] MEDS: ATORVASTATIN 40 MG TAB PO SCH (08:02)
[2025-05-12] MEDS: MULTIVITAMIN TAB PO SCH (08:02)
[2025-05-12] MEDS: SERTRALINE HCL 50 MG TABLET PO SCH (08:03)
[2025-05-12] MEDS: REMOVE NICODERM PATCH SCH (10:44)
[2025-05-12] MEDS: HYDROmorphone INJ 0.5 MG/0.5 ML SYR IV PRN (10:45)
[2025-05-12] MEDS: POLYETHYLENE (MIRALAX) 17 GM PACK PO PRN (14:11)
--- NOTE | 2025-05-13 08:05 | Orthopedic Progress Note ---
Date of Service May 13, 2025 Assessment & Plan (1) Status post right knee replacement: Overall she is doing fairly well. She is having a little bit of pain in her right knee today but that is to be expected. She will be seen by physical therapy today for ambulation and range of motion exercises. The nursing staff can change her dressing after physical therapy. She is on aspirin for DVT prophylaxis. She is [facility]. We are planning for discharge tomorrow. Cori Sanchez was seen and examined at bedside this morning. Overall she is doing fairly well. She is having a little bit of pain in her right knee but that is to be expected. She was able to participate with physical therapy yesterday. She has no other complaints.. Review of Systems All systems reviewed & are unremarkable except as noted in HPI & below. Physical Exam On physical exam of the right knee, the dressing is clean and dry. Her leg is out full extension. She has active dorsiflexion plantarflexion of her right ankle.. Results & Data Results & Data Laboratory Results . Diagnostic Findings . PG Care Time/CCT Total # of Minutes Spent Total Time Spent with Patient: Total time spent is greater than 50% in coordination of care (as documented) at patient's floor/unit and/or counseling patient: Coding Level of Care Code 86843 Post Operative Follow-Up Diagnoses Status post right knee replacement Z96.651
[2025-05-13] MEDS: REMOVE NICODERM PATCH SCH (10:19)
[2025-05-13] MEDS: NICOTINE 7 MG/24 HR TDSY TD SCH (10:43)
[2025-05-13] MEDS: POLYETHYLENE (MIRALAX) 17 GM PACK PO SCH (21:00)
--- NOTE | 2025-05-14 10:12 | Orthopedic Progress Note ---
Date of Service May 14, 2025 Assessment & Plan (1) Status post right knee replacement: * Continue Current Treatment * Disposition: [facility], [facility]. [facility] notes able to accept awaiting auth. * Daily treatment: Physical Therapy/ Occupational Therapy per protocol * Weight bearing status: as tolerated * Continue to monitor for ABLA * Pain control * DVT prophylaxis, ASA * Office/hospital f/u 2 weeks for progress check and staple/suture removal * Remainder care per primary team * Stable for discharge from ortho standpoint, further planning per primary team Subjective Active Problems: S/p right TKA POD 3 69 y/o female s/p right total knee arthroplasty. Doing well overall, pain managed and improved function. Denies fever/chills, chest pain/SOB, nausea/vomiting. Otherwise no complaints. . Review of Systems All systems reviewed & are unremarkable except as noted in HPI & below. Physical Exam * General: Alert and oriented, no acute distress * Constitutional: well-developed, well-nourished. * Respiratory: Normal respiratory effort, no distress * Gastrointestinal: No tenderness to palpation, no rigidity or guarding. * Skin: No rash or lesion. * Neurologic: Grossly normal * Musculoskeletal: Right knee surgical dressing Clean, dry small amount of serious bloody drainage at inferior portion of wound under STEPHY stocking. Otherwise no obvious deformity or overlying skin changes RLE. Diffuse TTP distal thigh and knee region. Otherwise no specific tenderness of proximal thigh, lower leg, foot/ankle. AROM knee flexion 50 degrees. AROM foot/ankle intact. Sensation intact plantar/dorsal foot. Brisk capillary refill. . Results & Data Results & Data Laboratory Results . Diagnostic Findings . Hip X-Ray 01/08/25 07:00 FL hip RT 1V CLINICAL HISTORY: RT ANTEIROR HIP COMPARISON STUDY: None FLUOROSCOPY TIME: 14 seconds FLUOROSCOPY IMAGES: 1 EXPOSURE DOSE: 1.7 mGy FINDINGS: Fluoroscopy was provided for right hip prosthesis. IMPRESSION: ACT 112: Negative or not required by law. Electronically signed by: Santo Gonzalez M.D. 01/08/2025 9:10 AM Knee X-Ray 05/11/25 11:34 XR knee RT 1 or 2V routine CLINICAL HISTORY: Surgical Post Op COMPARISON: None FINDINGS: Right knee prosthesis shows no hardware complication. There is expected soft tissue gas. IMPRESSION: Unremarkable postoperative exam. ACT 112: Negative or not required by law. Electronically signed by: Santo Gonzalez M.D. 05/11/2025 12:32 PM PG Care Time/CCT Total # of Minutes Spent Total Time Spent with Patient: Total time spent is greater than 50% in coordination of care (as documented) at patient's floor/unit and/or counseling patient: Coding Level of Care Code 89321 Post Operative Follow-Up Diagnoses Status post right knee replacement Z96.651
[2025-05-14 11:32] VITALS: O2SAT 97
[2025-05-14 20:59] VITALS: RESP 16; TEMP 98.1
[2025-05-15 08:52] VITALS: BP 149/84; PULSE 81
--- NOTE | 2025-05-15 09:05 | Orthopedic Progress Note ---
Date of Service May 15, 2025 Assessment & Plan (1) Status post right knee replacement: * Continue Current Treatment * Disposition: [facility]hab, [facility]. [facility] notes able to accept awaiting auth, P2P pending. * Daily treatment: Physical Therapy/ Occupational Therapy per protocol * Weight bearing status: as tolerated * Continue to monitor for ABLA * Pain control * DVT prophylaxis, ASA * Dressing change PRN * Office/hospital f/u 2 weeks for progress check and staple/suture removal * Possible discharge today pending rehab/SNF placement Subjective Active Problems: S/p right TKA POD 4 69 y/o female s/p right total knee arthroplasty. Doing well overall, pain managed and improved function. Denies fever/chills, chest pain/SOB, nausea/vomiting. Otherwise no complaints. Review of Systems All systems reviewed & are unremarkable except as noted in HPI & below. Physical Exam . * General: Alert and oriented, no acute distress * Constitutional: well-developed, well-nourished. * Respiratory: Normal respiratory effort, no distress * Gastrointestinal: No tenderness to palpation, no rigidity or guarding. * Skin: No rash or lesion. * Neurologic: Grossly normal * Musculoskeletal: Right knee surgical dressing with scant bloody drainage distally, not removed for exam. Otherwise no obvious deformity or overlying skin changes RLE. Diffuse TTP distal thigh and knee region. Otherwise no specific tenderness of proximal thigh, lower leg, foot/ankle. AROM knee flexion 110 degrees. AROM foot/ankle intact. Sensation intact plantar/dorsal foot. Brisk capillary refill. Results & Data Results & Data Laboratory Results . Diagnostic Findings . PG Care Time/CCT Total # of Minutes Spent Total Time Spent with Patient: Total time spent is greater than 50% in coordination of care (as documented) at patient's floor/unit and/or counseling patient: Coding Level of Care Code 31901 Post Operative Follow-Up Diagnoses Status post right knee replacement Z96.651
== END 2025-05-15 13:44 | DRG 467 ==
LOC: ASU 07:30 → PACUINP 11:34 → 3N 15:23
DX: T84.092A Other mechanical complication of internal right knee prosthesis, initial encounter; Z96.641 Presence of right artificial hip joint; M17.11 Unilateral primary osteoarthritis, right knee; Z96.651 Presence of right artificial knee joint; Z79.899 Other long term (current) drug therapy; I10 Essential (primary) hypertension; Z87.891 Personal history of nicotine dependence; E78.5 Hyperlipidemia, unspecified; Y79.2 Prosthetic and other implants, materials and accessory orthopedic devices associated with adverse incidents